=== PATIENT | male | born 1955 | race Caucasian/White ===

== ENCOUNTER 2021-01-08 20:02 | Emergency (ER) | payer MEDICARE, OTHER, SELFPAY ==
--- NOTE | ~2021-01-08 | US_ITS ---
EXAMINATION: US ABDOMEN LIMITED CLINICAL INFORMATION: Elevated LFTs. COMPARISON: None TECHNIQUE: Real-time imaging of the right upper quadrant abdominal viscera. FINDINGS: PANCREAS: The visualized proximal portion of the pancreas is unremarkable. The distal portion is obscured secondary to overlying bowel gas. LIVER: The liver is normal in size. The liver contour is normal. Parenchymal echogenicity is normal. There is a left lobe cyst measuring up to 1.5 cm and a right lobe cyst measuring 1.2 cm. There is no intrahepatic biliary duct dilatation seen. GALLBLADDER: The gallbladder is physiologically distended without evidence of stones, sludge, polyps, wall thickening or pericholecystic fluid. COMMON BILE DUCT: Normal in caliber measuring 0.4 cm in diameter. RIGHT KIDNEY: No hydronephrosis. No renal calculi identified. There is a lower pole cyst measuring up to 1.2 cm as well as a subcentimeter mid pole cyst. The kidney measures 12.0 cm in maximum dimension. FREE FLUID: None. US/US abdomen limited IMPRESSION: No acute findings identified.
--- NOTE | ~2021-01-08 | CT_ITS ---
EXAMINATION: CT CERVICAL SPINE WITHOUT CONTRAST CLINICAL INFORMATION: Head injury COMPARISON: None TECHNIQUE: Axial images through the cervical spine without contrast. Sagittal and coronal reconstructions on the technologist workstation were performed. This CT examination was performed using dose optimization techniques as appropriate, variously including the following: *Automated exposure control *Adjustment of mA and/or kV according to patient size (this includes techniques or standardized protocols for targeted exams where dose is matched to indication/reason for exam; i.e. extremities or head) *Use of iterative reconstruction technique DLP: 434 mGy-cm FINDINGS: The head is tilted to the right. Bone alignment is otherwise normal. No fracture or dislocation is seen. There is evidence of degenerative spondylosis and degenerative disc disease at 5 C5-C6 and C6-C7. There are degenerative changes at the C1 dens articulation. Prevertebral soft tissues are normal. The lung apices are clear. CT/CT cervical spine wo con IMPRESSION: No fracture or dislocation seen. Head tilt to the right and degenerative changes.
--- NOTE | ~2021-01-08 | XR_ITS ---
EXAMINATION: XR CHEST CLINICAL INFORMATION: Fall COMPARISON: None TECHNIQUE: Frontal view of the chest was obtained. FINDINGS: The cardiac and mediastinal contours are normal. The lung volumes are low. The lungs are clear. There is no pleural effusion or pneumothorax. Bony structures are unremarkable. XR/XR chest 1V IMPRESSION: Low lung volumes otherwise unremarkable exam.
--- NOTE | ~2021-01-08 | CT_ITS ---
EXAMINATION: CT HEAD WITHOUT CONTRAST CLINICAL INFORMATION: Head injury COMPARISON: None TECHNIQUE: Contiguous axial imaging was performed from the skull base to vertex without intravenous administration of contrast. This CT examination was performed using dose optimization techniques as appropriate, variously including the following: *Automated exposure control *Adjustment of mA and/or kV according to patient size (this includes techniques or standardized protocols for targeted exams where dose is matched to indication/reason for exam; i.e. extremities or head) *Use of iterative reconstruction technique DLP: 755 mGy-cm FINDINGS: There is no evidence of an extra-axial collection. There is no evidence of intra-axial or extra-axial hemorrhage. The ventricles and extra-axial CSF spaces are prominent suggestive of generalized atrophy. There is nonspecific periventricular white matter disease. No mass, mass effect or infarct is seen. Review at bone windows is normal. No skull fracture is seen. Visualized paranasal sinuses, mastoid air cells and middle ears are. CT/CT head/brain wo con IMPRESSION: No acute findings. Generalized atrophy and nonspecific periventricular white matter disease.
[2021-01-08 20:09] VITALS: BP 101/66; BP 110/78; PULSE 74; PULSE 80; RESP 15; TEMP 36.4; O2SAT 95; BMI 28.1
--- NOTE | 2021-01-08 20:55 | PC.NURSE ---
SATURATED BRIEF REMOVED FROM PATIENT. GOOD SKIN INTEGRITY THROUGHOUT. PT IS UNABLE TO FOLLOW COMMANDS, UNABLE TO STATE NEEDS, IS DIFFICULT TO MANUVER IN BED. NO INJURIED NOTED ON SCALP/HEAD. SMILING AT TIMES.
--- NOTE | 2021-01-08 21:03 | ECG_ITS ---
Test Reason : FALLS Blood Pressure : / mmHG Vent. Rate : 066 BPM Atrial Rate : 066 BPM P-R Int : 154 ms QRS Dur : 082 ms QT Int : 442 ms P-R-T Axes : 031 -11 007 degrees QTc Int : 463 ms Normal sinus rhythm Normal ECG No previous ECGs available Referred By: Kayce Infante Electronically Signed By:Riaz Charles
[2021-01-08 21:37] LABS: Basophils Percent Auto 0.2 % (0-2); Eosinophils Absolute Auto 0.3 X10*3/uL (0.0-0.4); Hematocrit 38.4 % (42-52); Hemoglobin 12.7 g/dl (14.0-18.0); Imm Gran Abs Auto 0.05 X10*3/uL (0.00-0.03); Imm Gran Pct Auto 0.4 % (0.0-0.4); Lymphocytes Absolute Auto 1.9 X10*3/uL (1.2-4.9); Lymphocytes Percent Auto 15.2 % (20-40); MANUAL DIFF FLAG NO; Mean Corpuscular HGB Conc 33.1 g/dl (31.0-36.0); Mean Corpuscular Hemoglobin 30.8 pg (27.0-33.0); Mean Corpuscular Volume 93.2 fL (80-98); Mean Platelet Volume 9.8 fL (9.4-12.4); Monocytes Absolute Auto 1.1 X10*3/uL (0.1-1.2); Monocytes Percent Auto 8.8 % (2-11); Neutrophils Percent Auto 73.4 % (45-73); Platelet Count 260 X10*3/uL (160-400); Red Blood Count 4.12 X10*6/uL (4.60-5.80); Red Cell Distribution Width 13.6 % (11.0-16.0); White Blood Count 12.2 X10*3/uL (4.8-10.8)
[2021-01-08 21:43] LABS: INTERNATIONAL NORM RATIO 1.2 (0.9-1.1); Prothrombin Time 14.4 SEC (10.8-13.0)
[2021-01-08 22:04] LABS: Alanine Aminotransferase 85 U/L (0-40); Albumin Level 3.8 g/dL (3.5-5.0); Alkaline Phosphatase 133 U/L (39-117); Aspartate Amino Transferase 99 U/L (5-37); Bilirubin Direct 0.2 mg/dL (0.0-0.5); Bilirubin Total 0.6 mg/dL (0.0-1.0); Magnesium 2.2 mg/dL (1.6-2.6); Total Protein 6.1 g/dL (6.5-8.0)
[2021-01-08 22:05] LABS: Alanine Aminotransferase 86 U/L (0-40); Albumin Level 3.8 g/dL (3.5-5.0); Alkaline Phosphatase 133 U/L (39-117); Anion Gap 14 (12-20); Aspartate Amino Transferase 100 U/L (5-37); Bilirubin Total 0.6 mg/dL (0.0-1.0); Blood Urea Nitrogen 23 mg/dL (9-16); Calcium 8.7 mg/dL (8.4-10.2); Carbon Dioxide 26 mmol/L (22-29); Chloride 104 mmol/L (96-108); Creatinine Clr Calc Pharmacy 74.9; Estimated Glomerular Filt Rate > 60; Glucose Random 106 mg/dL (60-115); Potassium 3.9 mmol/L (3.3-5.1); Sodium 140 mmol/L (135-145); Total Protein 6.2 g/dL (6.5-8.0)
[2021-01-08 22:07] LABS: B Type Natriuretic Peptide 57 pg/mL (<100); Troponin-I High Sensitivity 3.9 ng/L (<3.5-35.0)
[2021-01-08 22:30] LABS: Influenza A PCR NEGATIVE (Negative); Influenza B PCR NEGATIVE (Negative); Resp Syncy Virus RNA Qual PCR NEGATIVE (Negative); SARS COV2 PCR INHOUSE NEGATIVE (Negative)
[2021-01-08 22:32] LABS: Glucose Urine UA NEG (NEG); Leukocyte Esterase Urine NEG (NEG); Nitrite Urine NEG (NEG); PH 5.5 (5.0-8.0); Specific Gravity - Urine >= 1.030 (1.005-1.025); Urine Blood TRACE (NEG); Urine Ketones NEG (NEG); Urine Protein NEG (NEG-TRACE)
[2021-01-08 22:34] LABS: Appearance Urine CLEAR; Color Urine YELLOW
[2021-01-08 22:45] LABS: Mucus Urine 2+ /LPF; RBC Urine 0 /HPF (0); Squamous Epithelial Cell Urine 2+ /LPF; UACC CULT YES; WBC Clumps Urine NOTED; WBC Urine 50-75 /HPF (0-4)
[2021-01-09] VITALS: BP 98/57; PULSE 52; RESP 15; O2SAT 96
--- NOTE | 2021-01-09 01:22 | ED_ITS ---
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 Although from EMS apparently the patient was eating ice cream got very excited pushes head backward hit his head on the door although no loss of consciousness although they decided to sent here for further evaluation treatment. Although this is vague because the is telling us a different story saying that the patient possibly had a seizure. Although I attempted to call [facility] and was transferred 3 times and then was on hold for over 25 minutes and I was never able to contact anyone there about what actually happened. The is also reporting that she also attempted to call them and she can never get a response and till they call her. She reports she is concerned due to he was there for short-term rehab due to falls and since he has been there on Monday he has fallen approximately 3-4 times and she is unsure if she wants him to go back there. She reports he is at baseline for mentation. Related Data Allergies Allergy/AdvReac Type Severity Reaction Status Date / Time Penicillins Allergy Unknown rash Verified 01/09/21 01:36 Review of Systems Review of Systems: Yes Unobtainable due to mental condition (Alzhe robina's/dementia at baseline) [facility] Social History Social History Alcohol intake: never Smoked in Last 30 Days: No Use of substances other than those prescribed or required for medical reasons: No Advance Directives: Yes Advance Directives on File: Yes Advance Directives Date on File: 01/08/21 Physical Exam Vital Signs: Vital Signs: Last Vital Signs Temp 97.6 F 01/08/21 20:09 Pulse 52 01/09/21 00:00 Resp 15 01/09/21 00:00 BP 98/57 L 01/09/21 00:00 Pulse Ox 96 01/09/21 00:00 Body Mass Index 28.1 vital signs have been reviewed as normal and appeared to be correct. Blood pressure normal. Heart rate normal. Respiration rate normal. Temperature normal. Oxygen saturation normal. Appearance: Alert and confused at baseline. No acute distress. Head: Normal external exam. Normocephalic. No signs of trauma. Eyes: PERRLA. EOMI. Conjunctiva and sclera normal. Eyelids normal. ENT: Pharynx normal. Uvula midline. Moist mucous membranes. No trismus noted. No drooling noted. No muffled voice noted. Neck: Normal inspection. Neck supple. FROM. No adenopathy. No meningeal signs. CVS: Normal heart rate and rhythm. Heart sound normal. No murmurs noted. Pulses normal throughout. Respiratory: No respiratory distress. Painless inspiration. Breath sounds n ormal. No wheezes/rales/rhonchi noted. Chest nontender. No accessory muscle usage noted or decreased air movement noted. Abdomen: Soft and nontender. Nondistended. No guarding. No rigidity. Bowel s ounds normal in all 4 quadrants. No distention noted. No organomegaly noted. No visible injury noted. No rebound tenderness. Negative Rovsing sign. Negative obturator's sign. Negative psoas sign. Negative Narayan sign. Back: No CVA tenderness. Full range of motion noted. Skin: Skin warm and dry. Normal skin color. Normal skin turgor. No rashes/lesions/lacerations noted. Extremities: No lower extremity edema. No calf tenderness noted. Extremities exhibit normal range of motion. Extremities nontender. Neuro: Confused at baseline. No motor deficit. No sensory deficit. Reflexes normal. Course Course Course Narrative: 1:45am - labs obtained and [place] [address]. Mild anemia. BUN 23. AST/ALT/alkaline phosphate 100/86/133. Total protein 6.2. Otherwise all other labs are within normal limits. Patient with 50-75 white blood cells and UA negative nitrates patient with a possible UTI will await culture. Therefore blood cultures will be obtained as well. No lactic acid indicated at this time as no signs of sepsis. COVID/RSV/flu negative. EKG is normal sinus rhythm with ventricular rate of 66 with a normal SD interval normal QRS duration normal QT/QTC interval. No acute ischemic changes are noted. CT scan Of brain/cervical spine/chest x-ray revealed chronic changes no acute processes noted. - due to the patient's elevated LFTs I added of abdominal ultrasound and hepatitis panel. Abdominal ultrasound is within normal limits. Pending hepatitis a/B/C. - therefore patient medically cleared at this time and he is being placed in physician observation because he needs to be evaluated by physical therapy and possibly needs case management for new placement wants the patient to stay here overnight she does not want him to return tonight to [facility]. Therefore will continue to monitor. No focal neuro deficits are noted. Lungs clear to auscultation. CV RRR. Abdomen is soft and nontender. Will continue to monitor. 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 at bedside she is concerned due to she has been unable to reach him about will actually has been happening with her son since he arrived on Monday. I also attempted to call and I was unable to speak to someone. - per at bedside patient is at baseline for mentation and neuro. - Plan: Labs, EKG, CT scan of brain/cervical spine, chest x-ray, UA, COVID/RSV/flu swab then re-evaluate. Medical Records Medical records reviewed: Yes I reviewed the patient's medical records. Lab Data Lab results reviewed: Yes I reviewed the patient's lab results. Result diagrams: 01/08/21 21:29 01/08/21 21:29 Labs: Lab Results 01/08/21 01/08/21 01/08/21 Range/Units 21:29 21:29 21:29 WBC 12.2 H (4.8-10.8) X10*3/uL RBC 4.12 L (4.60-5.80) X10*6/uL Hgb 12.7 L (14.0-18.0) g/dl Hct 38.4 L (42-52) % MCV 93.2 (80-98) fL MCH 30.8 (27.0-33.0) pg MCHC 33.1 (31.0-36.0) g/dl RDW 13.6 (11.0-16.0) % Plt Count 260 (160-400) X10*3/uL MPV 9.8 (9.4-12.4) fL Immature Gran % (Auto) 0.4 (0.0-0.4) % Neut % (Auto) 73.4 H (45-73) % Lymph % (Auto) 15.2 L (20-40) % [place] % (Auto) 8.8 (2-11) % Eos % (Auto) 2.0 (0-4) % Baso % (Auto) 0.2 (0-2) % Lymph # (Auto) 1.9 (1.2-4.9) X10*3/uL [place] # (Auto) 1.1 (0.1-1.2) X10*3/uL Eos # (Auto) 0.3 (0.0-0.4) X10*3/uL Baso # (Auto) 0.0 (0.0-0.2) X10*3/uL Abs Immat Gran (auto) 0.05 H (0.00-0.03) X10*3/uL Absolute Neuts (auto) 9.0 H (2.0-8.3) X10*3/uL Absolute Nucleated RBC 0.000 (0.0-0.012) X10*3/uL Nucleated RBC % (auto) 0.0 (0.0-0.2) /100WBC PT 14.4 H (10.8-13.0) SEC INR 1.2 H (0.9-1.1) Sodium (135-145) mmol/L Potassium (3.3-5.1) mmol/L Chloride (96-108) mmol/L Carbon Dioxide (22-29) mmol/L Anion Gap (12-20) BUN (9-16) mg/dL Creatinine (0.5-1.4) mg/dL Estim Creat Clear Calc Estimated GFR Random Glucose (60-115) mg/dL Calcium (8.4-10.2) mg/dL Magnesium 2.2 (1.6-2.6) mg/dL Total Bilirubin 0.6 (0.0-1.0) mg/dL Direct Bilirubin 0.2 (0.0-0.5) mg/dL AST 99 H (5-37) U/L ALT 85 H (0-40) U/L Alkaline Phosphatase 133 H (39-117) U/L Troponin I High Sens (<3.5-35.0) ng/L B-Natriuretic Peptide (<100) pg/mL Total Protein 6.1 L (6.5-8.0) g/dL Albumin 3.8 (3.5-5.0) g/dL Urine Color Urine Appearance Urine pH (5.0-8.0) Ur Specific [place] (1.005-1.025) Urine Protein (NEG-TRACE) MG/DL Urine Glucose (UA) (NEG) MG/DL Urine Ketones (NEG) MG/DL Urine Blood (NEG) Urine Nitrite (NEG) Ur Leukocyte Esterase (NEG) Urine RBC (0) /HPF Urine WBC (0-4) /HPF Urine WBC Clumps Ur Squamous Epith Cells /LPF Urine Bacteria /LPF Urine Mucus /LPF Coronavirus (PCR) (Negative) Influenza Type A (PCR) (Negative) Influenza Type B (PCR) (Negative) RSV RNA Qual (PCR) (Negative) 01/08/21 01/08/21 01/08/21 Range/Units 21:29 21:29 21:29 WBC (4.8-10.8) X10*3/uL RBC (4.60-5.80) X10*6/uL Hgb (14.0-18.0) g/dl Hct (42-52) % MCV (80-98) fL MCH (27.0-33.0) pg MCHC (31.0-36.0) g/dl RDW (11.0-16.0) % Plt Count (160-400) X10*3/uL MPV (9.4-12.4) fL Immature Gran % (Auto) (0.0-0.4) % Neut % (Auto) (45-73) % Lymph % (Auto) (20-40) % [place] % (Auto) (2-11) % Eos % (Auto) (0-4) % Baso % (Auto) (0-2) % Lymph # (Auto) (1.2-4.9) X10*3/uL [place] # (Auto) (0.1-1.2) X10*3/uL Eos # (Auto) (0.0-0.4) X10*3/uL Baso # (Auto) (0.0-0.2) X10*3/uL Abs Immat Gran (auto) (0.00-0.03) X10*3/uL Absolute Neuts (auto) (2.0-8.3) X10*3/uL Absolute Nucleated RBC (0.0-0.012) X10*3/uL Nucleated RBC % (auto) (0.0-0.2) /100WBC PT (10.8-13.0) SEC INR (0.9-1.1) Sodium 140 (135-145) mmol/L Potassium 3.9 (3.3-5.1) mmol/L Chloride 104 (96-108) mmol/L Carbon Dioxide 26 (22-29) mmol/L Anion Gap 14 (12-20) BUN 23 H (9-16) mg/dL Creatinine 1.01 (0.5-1.4) mg/dL Estim Creat Clear Calc 74.9 Estimated GFR > 60 Random Glucose 106 (60-115) mg/dL Calcium 8.7 (8.4-10.2) mg/dL Magnesium (1.6-2.6) mg/dL Total Bilirubin 0.6 (0.0-1.0) mg/dL Direct Bilirubin (0.0-0.5) mg/dL AST 100 H (5-37) U/L ALT 86 H (0-40) U/L Alkaline Phosphatase 133 H (39-117) U/L Troponin I High Sens 3.9 (<3.5-35.0) ng/L B-Natriuretic Peptide (<100) pg/mL Total Protein 6.2 L (6.5-8.0) g/dL Albumin 3.8 (3.5-5.0) g/dL Urine Color Urine Appearance Urine pH (5.0-8.0) Ur Specific [place] (1.005-1.025) Urine Protein (NEG-TRACE) MG/DL Urine Glucose (UA) (NEG) MG/DL Urine Ketones (NEG) MG/DL Urine Blood (NEG) Urine Nitrite (NEG) Ur Leukocyte Esterase (NEG) Urine RBC (0) /HPF Urine WBC (0-4) /HPF Urine WBC Clumps Ur Squamous Epith Cells /LPF Urine Bacteria /LPF Urine Mucus /LPF Coronavirus (PCR) NEGATIVE (Negative) Influenza Type A (PCR) NEGATIVE (Negative) Influenza Type B (PCR) NEGATIVE (Negative) RSV RNA Qual (PCR) NEGATIVE (Negative) 01/08/21 01/08/21 Range/Units 21:29 22:26 WBC (4.8-10.8) X10*3/uL RBC (4.60-5.80) X10*6/uL Hgb (14.0-18.0) g/dl Hct (42-52) % MCV (80-98) fL MCH (27.0-33.0) pg MCHC (31.0-36.0) g/dl RDW (11.0-16.0) % Plt Count (160-400) X10*3/uL MPV (9.4-12.4) fL Immature Gran % (Auto) (0.0-0.4) % Neut % (Auto) (45-73) % Lymph % (Auto) (20-40) % [place] % (Auto) (2-11) % Eos % (Auto) (0-4) % Baso % (Auto) (0-2) % Lymph # (Auto) (1.2-4.9) X10*3/uL [place] # (Auto) (0.1-1.2) X10*3/uL Eos # (Auto) (0.0-0.4) X10*3/uL Baso # (Auto) (0.0-0.2) X10*3/uL Abs Immat Gran (auto) (0.00-0.03) X10*3/uL Absolute Neuts (auto) (2.0-8.3) X10*3/uL Absolute Nucleated RBC (0.0-0.012) X10*3/uL Nucleated RBC % (auto) (0.0-0.2) /100WBC PT (10.8-13.0) SEC INR (0.9-1.1) Sodium (135-145) mmol/L Potassium (3.3-5.1) mmol/L Chloride (96-108) mmol/L Carbon Dioxide (22-29) mmol/L Anion Gap (12-20) BUN (9-16) mg/dL Creatinine (0.5-1.4) mg/dL Estim Creat Clear Calc Estimated GFR Random Glucose (60-115) mg/dL Calcium (8.4-10.2) mg/dL Magnesium (1.6-2.6) mg/dL Total Bilirubin (0.0-1.0) mg/dL Direct Bilirubin (0.0-0.5) mg/dL AST (5-37) U/L ALT (0-40) U/L Alkaline Phosphatase (39-117) U/L Troponin I High Sens (<3.5-35.0) ng/L B-Natriuretic Peptide 57 (<100) pg/mL Total Protein (6.5-8.0) g/dL Albumin (3.5-5.0) g/dL Urine Color YELLOW Urine Appearance CLEAR Urine pH 5.5 (5.0-8.0) Ur Specific [place] >= 1.030 H (1.005-1.025) Urine Protein NEG (NEG-TRACE) MG/DL Urine Glucose (UA) NEG (NEG) MG/DL Urine Ketones NEG (NEG) MG/DL Urine Blood TRACE (NEG) Urine Nitrite NEG (NEG) Ur Leukocyte Esterase NEG (NEG) Urine RBC 0 (0) /HPF Urine WBC 50-75 H (0-4) /HPF Urine WBC Clumps NOTED Ur Squamous Epith Cells 2+ /LPF Urine Bacteria NONE /LPF Urine Mucus 2+ /LPF Coronavirus (PCR) (Negative) Influenza Type A (PCR) (Negative) Influenza Type B (PCR) (Negative) RSV RNA Qual (PCR) (Negative) Imaging Data CT scan of brain/cervical spine: Attestation: I personally reviewed and interpreted this imaging study as follows: Radiologist's impression: FINDINGS: There is no evidence of an extra-axial collection. There is no evidence of intra-axial or extra-axial hemorrhage. The ventricles and extra-axial CSF spaces are prominent suggestive of generalized atrophy. There is nonspecific periventricular white matter disease. No mass, mass effect or infarct is seen. Review at bone windows is normal. No skull fracture is seen. Visualized paranasal sinuses, mastoid air cells and middle ears are. CT/CT head/brain wo con IMPRESSION: No acute findings. Generalized atrophy and nonspecific periventricular white matter disease. FINDINGS: The head is tilted to the right. Bone alignment is otherwise normal. No fracture or dislocation is seen. There is evidence of degenerative spondylosis and degenerative disc disease at 5 C5-C6 and C6-C7. There are degenerative changes at the C1 dens articulation. Prevertebral soft tissues are normal. The lung apices are clear. CT/CT cervical spine wo con IMPRESSION: No fracture or dislocation seen. Head tilt to the right and degenerative changes. Chest x-ray: Attestation: I personally reviewed and interpreted this imaging study as follows: Radiologist's impression: FINDINGS: The cardiac and mediastinal contours are normal. The lung volumes are low. The lungs are clear. There is no pleural effusion or pneumothorax. Bony structures are unremarkable. XR/XR chest 1V IMPRESSION: Low lung volumes otherwise unremarkable exam. ECG Data Attestation: I personally reviewed and interpreted this ECG as follows: Interpretation: Normal sinus rhythm with ventricular rate of 66 with a normal SD interval normal QRS duration normal QT/QTC interval no acute ischemic changes are noted. Discharge Plan Discharge Clinical Impression: Multiple falls
[2021-01-09 06:00] VITALS: BP 111/74; PULSE 58; RESP 15; O2SAT 95
[2021-01-09 07:25] VITALS: BP 111/74; PULSE 58; O2SAT 95
--- NOTE | 2021-01-09 10:51 | MHC.CM.PN ---
Attempted to meet with pt to discuss d/c plans: pt in bed: not aware of time, location, situation but did answer to name. Review of EMR notes pt came from [facility] after a fall/? seizure. All work up is negative. Attempted to contact nursing unit at [facility] x 3: phone rings without pickup then disconnects. Call placed to pt's spouse, Roland who provided all of the following information: Pt had been at home approximately 3 weeks ago being cared for by her and their dtr. Pt was becomming difficult to manage: behaviors, including physical, became worse and he was brought to [facility] for eval. Placement was obtained after 7 days to [facility]; pt exhibiting behaviors there, sent back to [facility] and ultimately d/c'd to [facility] on 01/04. Roland states pt is able to ambulate unassisted but requires extensive cueing and assistance for ADL's. She is his HCP - copy requested: CM will contact [facility] for copy as well. Pt has a secondary insurance policy through [employer] (from [facility]): unsure if this has a STR/LTC benefit. Pt seen by PT here - pt unable to cognitively participate in eval and LTC was recommended. Roland does not want pt to return to [facility] at this time d/t his 3+ falls since he arrived on 01/04, lack of staff communication and overall feeling of suboptimal care. Explained the difficulties in finding appropriate placement for pt d/t dx, behavior hx and need for a secure unit. Will re-refer to [facility] and other [facility] STR facilities per Roland's request. Will attempt to contact [facility] for medication information.
--- NOTE | 2021-01-09 12:01 | MHC.CM.ED ---
Spoke with Angelica from [facility] who offered apologizes on not being more communicative. She states they would love for pt to return and offered continue apologies for the issues experienced. Spoke with Roland, pt's spouse who is willing to try [facility] again. Pt is medically cleared and will return to [facility] today at 1pm via [facility].
[2021-01-09 13:43] VITALS: BP 123/79; PULSE 55; RESP 18; O2SAT 97
--- NOTE | 2021-01-09 13:51 | PC.NURSE ---
report given to Renée
[2021-01-11 04:17] LABS: HBS Num1 0.57 mIU/mL (0-7.99); HBc Num1 0.05 S/CO (0.00-0.79); Hepatitis B Core Antibody Nonreactive (Nonreactive); Hepatitis B Surface Antigen Negative (Negative); ~HepC Num1 0.49 S/CO (0.00-0.79); ~Hepatitis B Surface Antibody NONREACTIVE (Nonreactive); ~Hepatitis C Antibody Nonreactive (Nonreactive)
[2021-01-12 04:33] LABS: Hepatitis A Antibody IgM 0.12 Index (0-0.79); ~Hepatitis A Antibody IgM Nonreactive (Nonreactive)
== END 2021-01-09 13:53 | disposition skilled nursing facility (03) ==
PROVIDERS: Physician Assistant Medical; Emergency Provider Emergency Medicine; PCP Emergency Medicine
DX: S09.90XA Unspecified injury of head, initial encounter (principal); G30.9 Alzheimer's disease, unspecified; F02.81 Dementia in other diseases classified elsewhere, unspecified severity, with behavioral disturbance; M54.2 Cervicalgia; I25.10 Atherosclerotic heart disease of native coronary artery without angina pectoris; W01.0XXA Fall on same level from slipping, tripping and stumbling without subsequent striking against object, initial encounter; Y93.9 Activity, unspecified; Y92.129 Unspecified place in nursing home as the place of occurrence of the external cause; Y99.9 Unspecified external cause status; Z20.822 Contact with and (suspected) exposure to COVID-19; Z91.81 History of falling; Z79.899 Other long term (current) drug therapy
CPT/HCPCS: 0241U; 36415; 70450; 71045; 72125; 76705; 80053; 80076; 81001; 82248; 83735; 83880; 84484; 85025; 85610; 86704; 86706; 86709; 86803; 87040; 87086; 87340; 93005; 97161; 99285

== ENCOUNTER 2021-09-13 22:39 | Emergency (ER) | payer MEDICARE, OTHER, SELFPAY ==
--- NOTE | ~2021-09-13 | XR_ITS ---
EXAMINATION: XR CHEST CLINICAL INFORMATION: Shortness of breath COMPARISON: 01/08/2021 TECHNIQUE: Frontal view of the chest was obtained. FINDINGS: Compared to the prior study, there is better expansion of the lungs with clearing of previously present lower lobe atelectasis. At this point in time, no significant abnormality is noted involving the heart, lungs, mediastinum, bony thorax or soft tissues. XR/XR chest 1V IMPRESSION: No acute intrathoracic disease.
--- NOTE | ~2021-09-13 | CT_ITS ---
EXAMINATION: CT ABDOMEN AND PELVIS WITH CONTRAST CLINICAL INFORMATION: Ultrasound 01/08/2021 COMPARISON: None TECHNIQUE: Multidetector volumetric images were obtained from the superior aspect of the liver through the pubic symphysis following administration 85 mL of Omnipaque 350 intravenous contrast. Sagittal and coronal reformatted images were obtained on the technologist's workstation. Oral contrast: No This CT examination was performed using dose optimization techniques as appropriate, variously including the following: *Automated exposure control *Adjustment of mA and/or kV according to patient size (this includes techniques or standardized protocols for targeted exams where dose is matched to indication/reason for exam; i.e. extremities or head) *Use of iterative reconstruction technique DLP: 2075 mGy-cm FINDINGS: Motion limited evaluation. Repeat images are performed due to this. LUNG BASES: Groundglass opacities noted at the lung bases consistent with clinical history of Covid. The visualized cardiac structures are unremarkable. LIVER, GALLBLADDER, AND BILIARY TREE: The liver is normal in size, shape, and attenuation. No biliary ductal dilatation. There are hypoattenuating lesions noted in the liver which likely correspond to cysts seen on previous ultrasound.. The gallbladder is unremarkable with no evidence of radiopaque gallstones, gallbladder wall thickening, or obvious pericholecystic inflammatory changes. PANCREAS: Unremarkable. SPLEEN: Unremarkable. ADRENAL GLANDS: Unremarkable. KIDNEYS AND URETERS: The kidneys are normal in size, shape, and attenuation. No hydronephrosis, hydroureter, or calculi seen. No perinephric stranding. BLADDER: Unremarkable. GASTROINTESTINAL TRACT: The stomach is unremarkable. Normal caliber small bowel. No obstruction. No colonic wall thickening or inflammatory change. Unremarkable appendix. Mild colonic stool burden. No free air or free fluid. ABDOMINAL WALL: No significant hernia is appreciated. LYMPH NODES: Normal. VASCULAR: Unremarkable. PELVIC VISCERA: The prostate and seminal vesicles are unremarkable. OSSEOUS STRUCTURES: No acute or suspicious osseous abnormality. Degenerative changes of the lumbar spine. Mild degenerative changes in the hips. CT/CT abdomen pelvis w con IMPRESSION: Motion limited study. Groundglass opacities at the lung bases correspond with clinical history of Covid. No suspicious findings in the abdomen or pelvis. Mild colonic stool burden. Fleischner guidelines were followed.
[2021-09-13 23:01] VITALS: BP 116/77; BP 117/83; PULSE 86; PULSE 93; RESP 16; TEMP 37.1; O2SAT 95; O2SAT 96; BMI 23.8
[2021-09-13 23:12] VITALS: TEMP 37.6
--- NOTE | 2021-09-13 23:41 | ED_ITS ---
HPI - Nausea/Vomiting/Diarrhea General Chief complaint: Nausea/Vomiting/Diarrhea Stated complaint: N/V ?GI bleed (from SNF/COVID +) Time Seen by Provider: 09/13/21 23:35 History of Present Illness HPI Narrative: Patient is a 66-year-old male with a history of advanced dementia. He has a do not resuscitate order documented from previous. Tested positive for COVID approximately 3 days prior. Patient had nausea vomiting earlier this evening. Multiple times. Sent in for further evaluation for possible blood in the vomitus. Patient not on blood thinners. Unable to give detailed history. Related Data Allergies Allergy/AdvReac Type Severity Reaction Status Date / Time Penicillins Allergy Unknown rash Verified 01/09/21 01:36 Review of Systems Review of Systems: Yes Unobtainable due to mental status PMFSH Past Medical History Attestation statement: The following information was validated with the patient. Social History Social History Alcohol intake: never Advance Directives: Yes Advance Directives on File: Yes Advance Directives Date on File: 01/08/21 Physical Exam Vital Signs: Vital Signs: Last Vital Signs Temp 98.7 F 09/14/21 00:45 Pulse 81 09/14/21 00:45 Resp 10 L 09/14/21 00:45 BP 148/74 H 09/14/21 00:45 Pulse Ox 98 09/14/21 00:45 BMI result Body Mass Index 23.8 Appearance: Alert. Oriented times 0 No acute distress. Eyes: Pupils equal, round and reactive to light. ENT: Pharynx normal. Neck: Normal inspection. Neck supple. No lymph nodes noted. No crepitus CVS: Normal heart rate and rhythm. Pulses normal. Normal S1 and S2 Respiratory: No respiratory distress. Breath sounds normal. No Wheezing. No rales Abdomen: Soft and nontender. No rigidity. No distention. good BS x4 Skin: Skin warm and dry. Normal skin color. Normal skin turgor. Rectal exam done with nursing present positive brown hard stool. Extremities: No lower extremity edema. Neurovascular intact to all extremities. No Lacerations. No Rash Neuro: Awake. No motor deficit. No sensory deficit. Moving all extermities. MDM - Nausea/Vomiting/Diarrhea MDM Narrative Medical decision making narrative: Patient presented with having possible coughing versus vomiting episode. On further clarification from alf. Patient had coughing episodes. The chest x-ray was consistent with having COVID. Patient's COVID test is positive. However his O2 sat is 98% on room air. Patient's electrolytes normal. A CT scan of the abdomen was done. There is no gross obstruction no abscess no perforation. Patient's hemoglobin is baseline. A rectal exam showed patient had heme-negative stool. Patient not on blood thinners. Is well appearing. He will be discharged back. In stable condition. Medical Records Attestation: I reviewed the patient's medical records. Lab Data Attestation: I reviewed the patient's lab results. Result diagrams: 09/14/21 00:16 09/14/21 00:16 Labs: Lab Results 09/14/21 09/14/21 09/14/21 Range/Units 00:16 00:16 00:16 WBC 9.3 (4.8-10.8) X10*3/uL RBC 4.01 L (4.60-5.80) X10*6/uL Hgb 12.3 L (14.0-18.0) g/dl Hct 37.4 L (42.0-52.0) % MCV 93.3 (80.0-98.0) fL MCH 30.7 (27.0-33.0) pg MCHC 32.9 (31.0-36.0) g/dl RDW 14.7 (11.0-16.0) % Plt Count 196 (160-400) X10*3/uL MPV 11.5 (9.4-12.4) fL Immature Gran % (Auto) 0.5 H (0.0-0.4) % Neut % (Auto) 68.4 (45-73) % Lymph % (Auto) 15.7 L (20-40) % [place] % (Auto) 14.9 H (2-11) % Eos % (Auto) 0.2 (0-4) % Baso % (Auto) 0.3 (0-2) % Lymph # (Auto) 1.5 (1.2-4.9) X10*3/uL [place] # (Auto) 1.4 H (0.1-1.2) X10*3/uL Eos # (Auto) 0.0 (0.0-0.4) X10*3/uL Baso # (Auto) 0.0 (0.0-0.2) X10*3/uL Abs Immat Gran (auto) 0.05 H (0.00-0.03) X10*3/uL Absolute Neuts (auto) 6.3 (2.0-8.3) x10*3/uL Absolute Nucleated RBC 0.000 (0.0-0.012) X10*3/uL Nucleated RBC % (auto) 0.0 (0.0-0.2) /100WBC Sodium 140 (135-145) mmol/L Potassium 3.8 (3.3-5.1) mmol/L Chloride 105 (96-108) mmol/L Carbon Dioxide 25 (22-29) mmol/L Anion Gap 14 (12-20) BUN 15 (9-16) mg/dL Creatinine 1.00 (0.5-1.4) mg/dL Estim Creat Clear Calc 70.7 Estimated GFR > 60 Random Glucose 107 (60-115) mg/dL Calcium 8.4 (8.4-10.2) mg/dL Total Bilirubin 0.5 (0.0-1.0) mg/dL Direct Bilirubin 0.2 (0.0-0.5) mg/dL AST 48 H D (5-37) U/L ALT 37 (0-40) U/L Alkaline Phosphatase 130 H (39-117) U/L Total Protein 6.0 L (6.5-8.0) g/dL Albumin 3.4 L (3.5-5.0) g/dL Lipase 58 (8-78) U/L Stool Occult Blood NEGATIVE (NEGATIVE) SARS-CoV-2 (PCR) SARS-CoV-2 RNA (RT-PCR) (Negative) 09/14/21 Range/Units 00:16 WBC (4.8-10.8) X10*3/uL RBC (4.60-5.80) X10*6/uL Hgb (14.0-18.0) g/dl Hct (42.0-52.0) % MCV (80.0-98.0) fL MCH (27.0-33.0) pg MCHC (31.0-36.0) g/dl RDW (11.0-16.0) % Plt Count (160-400) X10*3/uL MPV (9.4-12.4) fL Immature Gran % (Auto) (0.0-0.4) % Neut % (Auto) (45-73) % Lymph % (Auto) (20-40) % [place] % (Auto) (2-11) % Eos % (Auto) (0-4) % Baso % (Auto) (0-2) % Lymph # (Auto) (1.2-4.9) X10*3/uL [place] # (Auto) (0.1-1.2) X10*3/uL Eos # (Auto) (0.0-0.4) X10*3/uL Baso # (Auto) (0.0-0.2) X10*3/uL Abs Immat Gran (auto) (0.00-0.03) X10*3/uL Absolute Neuts (auto) (2.0-8.3) x10*3/uL Absolute Nucleated RBC (0.0-0.012) X10*3/uL Nucleated RBC % (auto) (0.0-0.2) /100WBC Sodium (135-145) mmol/L Potassium (3.3-5.1) mmol/L Chloride (96-108) mmol/L Carbon Dioxide (22-29) mmol/L Anion Gap (12-20) BUN (9-16) mg/dL Creatinine (0.5-1.4) mg/dL Estim Creat Clear Calc Estimated GFR Random Glucose (60-115) mg/dL Calcium (8.4-10.2) mg/dL Total Bilirubin (0.0-1.0) mg/dL Direct Bilirubin (0.0-0.5) mg/dL AST (5-37) U/L ALT (0-40) U/L Alkaline Phosphatase (39-117) U/L Total Protein (6.5-8.0) g/dL Albumin (3.5-5.0) g/dL Lipase (8-78) U/L Stool Occult Blood (NEGATIVE) SARS-CoV-2 (PCR) Cancelled SARS-CoV-2 RNA (RT-PCR) POSITIVE A (Negative) Discharge Plan Discharge Clinical Impression: COVID-19 Patient Disposition: Home, Self-Care Instructions: COVID-19 (Coronavirus Disease 2019) (ED) Referrals: YVES HONG [Primary Care Provider] - 2 days (Placed a isolative for at least 1 week from the onset of symptoms. Please make sure patient has no sympto ms for at least 2 days prior to being released from isolation)
[2021-09-14 00:22] LABS: MANUAL DIFF FLAG NO
[2021-09-14 00:23] LABS: Basophils Percent Auto 0.3 % (0-2); Eosinophils Percent Auto 0.2 % (0-4); Hematocrit 37.4 % (42.0-52.0); Hemoglobin 12.3 g/dl (14.0-18.0); Imm Gran Abs Auto 0.05 X10*3/uL (0.00-0.03); Imm Gran Pct Auto 0.5 % (0.0-0.4); Lymphocytes Absolute Auto 1.5 X10*3/uL (1.2-4.9); Lymphocytes Percent Auto 15.7 % (20-40); Mean Corpuscular HGB Conc 32.9 g/dl (31.0-36.0); Mean Corpuscular Hemoglobin 30.7 pg (27.0-33.0); Mean Corpuscular Volume 93.3 fL (80.0-98.0); Mean Platelet Volume 11.5 fL (9.4-12.4); Monocytes Absolute Auto 1.4 X10*3/uL (0.1-1.2); Monocytes Percent Auto 14.9 % (2-11); Neutrophils Absolute Auto 6.3 x10*3/uL (2.0-8.3); Neutrophils Percent Auto 68.4 % (45-73); Platelet Count 196 X10*3/uL (160-400); Red Blood Count 4.01 X10*6/uL (4.60-5.80); Red Cell Distribution Width 14.7 % (11.0-16.0); White Blood Count 9.3 X10*3/uL (4.8-10.8)
--- NOTE | 2021-09-14 00:23 | PC.NURSE ---
PT was coughing while this RN was inserting IV. Asked PT to cough and then spit into a cloth so we could visualize blood. PT unable to follow directions well, but no obvious visualization of blood in the mouth.
[2021-09-14] MEDS: 0.9 % Sodium Chloride 1,000 ML 999 ML IV (00:28)
[2021-09-14] MEDS: Ondansetron ODT 4 MG TAB.RAPDIS SUBLINGUAL (00:28)
[2021-09-14 00:30] LABS: OBS Int Ctl Valid YES; OBS1 NEGATIVE (NEGATIVE)
[2021-09-14] MEDS: 0.9 % Sodium Chloride 500 ML 999 ML IV (00:30)
[2021-09-14 00:45] VITALS: BP 148/74; PULSE 81; RESP 10; TEMP 37.1; O2SAT 98
[2021-09-14 00:47] LABS: Alanine Aminotransferase 37 U/L (0-40); Albumin Level 3.4 g/dL (3.5-5.0); Alkaline Phosphatase 130 U/L (39-117); Anion Gap 14 (12-20); Aspartate Amino Transferase 48 U/L (5-37); Bilirubin Direct 0.2 mg/dL (0.0-0.5); Bilirubin Total 0.5 mg/dL (0.0-1.0); Blood Urea Nitrogen 15 mg/dL (9-16); Calcium 8.4 mg/dL (8.4-10.2); Carbon Dioxide 25 mmol/L (22-29); Chloride 105 mmol/L (96-108); Creatinine Clr Calc Pharmacy 70.7; Estimated Glomerular Filt Rate > 60; Glucose Random 107 mg/dL (60-115); Lipase 58 U/L (8-78); Potassium 3.8 mmol/L (3.3-5.1); Sodium 140 mmol/L (135-145)
[2021-09-14 01:02] LABS: SARS COV2 PCR INHOUSE POSITIVE (Negative)
[2021-09-14] MEDS: iohexoL 350 MG/ML 100 ML INFUS..BTL 85 ML IV (02:15)
[2021-09-14 03:00] VITALS: BP 125/82; PULSE 85; RESP 16; TEMP 38; O2SAT 96
[2021-09-14 03:56] VITALS: PULSE 84; RESP 12; TEMP 38.1
[2021-09-14] MEDS: Acetaminophen Supp 650 MG SUPP.RECT PR (04:17)
== END 2021-09-14 04:20 | disposition home or self-care (01) ==
PROVIDERS: Emergency Provider Emergency Medicine Emergency Medical Services; PCP Emergency Medicine
DX: U07.1 COVID-19 (principal); R11.2 Nausea with vomiting, unspecified; I10 Essential (primary) hypertension
CPT/HCPCS: 36415; 71045; 74177; 80048; 80076; 82272; 83690; 85025; 96360; 99284; Q9967; U0003; U0005

== ENCOUNTER 2021-12-20 09:02 | Emergency (ER) | payer MEDICARE, OTHER, SELFPAY ==
--- NOTE | ~2021-12-20 | CT_ITS ---
EXAMINATION: CT ABDOMEN AND PELVIS WITHOUT CONTRAST CLINICAL INFORMATION: Altered mental status and new thrombocytopenia COMPARISON: CT abdomen pelvis 09/14/2021 TECHNIQUE: Multidetector volumetric imaging was performed from the superior aspect of the liver through the pubic symphysis. Sagittal and coronal reformatted images were obtained on the technologist's workstation. This CT examination was performed using dose optimization techniques as appropriate, variously including the following: *Automated exposure control *Adjustment of mA and/or kV according to patient size (this includes techniques or standardized protocols for targeted exams where dose is matched to indication/reason for exam; i.e. extremities or head) *Use of iterative reconstruction technique DLP: 1028 mGy-cm FINDINGS: LUNG BASES: Bibasilar atelectasis is present. No pleural effusions. No infiltrates. LIVER, GALLBLADDER, AND BILIARY TREE: The liver is normal in size, shape, and attenuation. Multiple hepatic cysts are again redemonstrated. No worrisome solid focal hepatic lesion or biliary ductal dilatation is present. The gallbladder is unremarkable with no evidence of radiopaque gallstones, gallbladder wall thickening, or obvious pericholecystic inflammatory changes. PANCREAS: Unremarkable. SPLEEN: The spleen is normal in size. Some splenules are present the largest measuring 2.6 cm. ADRENAL GLANDS: Small left adrenal nodule is seen that measures water density consistent with a benign adenoma. KIDNEYS AND URETERS: The kidneys are normal in size, shape, and attenuation. A Bosniak class wine and Bosniak class II renal cysts are present on the right, unchanged a benign 1.6 cm left parapelvic cyst is present.. No further imaging or follow-up is needed. No solid renal masses are seen. No hydronephrosis, hydroureter, or calculi seen. No perinephric stranding. BLADDER: Empty and difficult to evaluate. GASTROINTESTINAL TRACT: A large amount of stool is present in the rectosigmoid. There is colonic bowel wall thickening, new since prior which involves the ascending colon, transverse colon and proximal descending which may represent colitis. The small bowel is unremarkable. The appendix is unremarkable. ABDOMINAL WALL: No significant hernia is appreciated. LYMPH NODES: Normal. VASCULAR: Unremarkable. PELVIC VISCERA: There is mild BPH. OSSEOUS STRUCTURES: Degenerative changes are present in the spine with scoliosis convex to the right. Benign-appearing stable cyst is noted in the right femoral head along with a sclerotic density in the left iliac bone adjacent to the SI joint.. CT/CT abdomen pelvis wo con IMPRESSION: There is mucosal thickening involving the descending transverse and proximal descending colon, new since the prior study of 09/14/2021. Differential diagnosis would include colitis. Other incidental findings as described above. Fleischner guidelines were followed.
--- NOTE | ~2021-12-20 | CT_ITS ---
CT head/brain wo con CLINICAL INFORMATION: Reason for Exam AMS COMPARISON: Prior CT from January 08, 2021 TECHNIQUE: Department standard protocol. This CT examination was performed using dose optimization techniques as appropriate, variously including the following: *Automated exposure control *Adjustment of mA and/or kV according to patient size (this includes techniques or standardized protocols for targeted exams where dose is matched to indication/reason for exam; i.e. extremities or head) *Use of iterative reconstruction technique DLP: 1948 mGy-cm FINDINGS: CEREBRAL HEMISPHERES: There is no evidence of intra-axial or extra-axial mass, hemorrhage or acute infarct. BRAIN PARENCHYMA: Deep white matter and paraventricular hypoattenuation, nonspecific; most likely changes secondary to chronic ischemia due to microvascular angiopathy. SUBDURAL SPACE: No bleed. BASAL GANGLIA AND PINEAL GLAND: Unremarkable VENTRICLES: Ventricular dilatation is out of proportion to the degree of the atrophy. There is low-attenuation periventricular white matter worrisome for possible hydrocephaly and transependymal extravasation. CEREBELLUM AND BRAINSTEM: No space-occupying mass, hemorrhage or acute infarct. CEREBELLOPONTINE ANGLES: No lesion found. ORBITS: No intraorbital mass. VESSELS: Unremarkable SKULL BASE: Unremarkable INCLUDED SINUSES AT SKULL BASE: Clear SKULL AND SKIN: No fracture or bone lesion found. CT/CT head/brain wo con IMPRESSION: Deep white matter and periventricular hypoattenuation, nonspecific; most likely sequela of chronic microvascular angiopathy ischemia. Ventriculomegaly and possibly transependymal extravasation raising suspicion for possible hydrocephaly/NPH. Clinical correlation recommended. Does the patient has symptoms of NPH (ataxia, incontinence, and confusion)? MRI could be utilized for further investigation.
--- NOTE | 2021-12-20 09:09 | ED_ITS ---
HPI - Psych General Chief Complaint: Psychiatric Symptoms Stated Complaint: CRISIS, AGGRESSIVE BEHAVIOR Time Seen by Provider: 12/20/21 09:09 Source: EMS and other (very limited information, no packet came with patient) Mode of arrival: EMS Limitations: altered mental status (dementia) History of Present Illness MD complaint: other (aggressive, PICA) Onset (ago): unknown Duration: constant History of same: Yes Relieving factors: none Exacerbating factors: none Context: other (advanced dementia) Associated psychiatric symptoms: other (attempting to bite staff) Associated symptoms: denies other symptoms Treatments prior to arrival: none Related Data Allergies Allergy/AdvReac Type Severity Reaction Status Date / Time Penicillins Allergy Unknown rash Verified 01/09/21 01:36 Review of Systems Review of Systems: ROS unable to be obtained due to advanced dementia [facility] Past Medical History Attestation statement: The following information was validated with the patient. Medical History (Updated 12/20/21 @ 14:17 by Aissatou Rodas DO) Alzheimers disease Atherosclerotic heart disease of [place] coronary artery without angina pectoris Barretts esophagus Dementia with behavioral disturbance Do not resuscitate status Di-aau-[id number] resuscitation status Essential hypertension Hyperlipidemia Social History Social History Alcohol intake: never Patient Tobacco Use Status: Tobacco use Unknown Advance Directives: Yes Advance Directives on File: Yes Advance Directives Date on File: 12/20/21 Physical Exam Vital Signs: Vital Signs: Last Vital Signs Temp 97.3 F 12/20/21 09:18 Pulse 78 12/20/21 09:18 Resp 18 12/20/21 09:18 BP 132/87 12/20/21 09:18 Pulse Ox 98 12/20/21 09:18 BMI result Body Mass Index 25.8 Appearance: Alert. will not answer questions - mumbles. No acute distress. Eyes: Pupils equal, round and reactive to light. ENT: Pharynx normal. Neck: Normal inspection. Neck supple. CVS: Normal heart rate and rhythm. Pulses normal. Respiratory: No respiratory distress. Breath sounds normal. Abdomen: Soft and non-tender. does not grimace Skin: Skin warm and dry. Normal skin color. Extremities: No lower extremity edema. No calf ttp Neuro: moves all extremities equally, does follow some commands, will not participate in exam. Course Course Course Narrative: bradycardic BP stable - EKG stable per our onsite case manager the patient is aggressive at baseline but today the biting was too much and they cannot handle that requesting psychiatric consult new thrombocytopenia hemoglobin stable - CT head/abdomen ordered to evaluate spleen and look for ICH COVID is negative - LFTS normal CT scan of head looks similar to prior December 2020 CT abdomen possible colitis no diarrhea, no abdominal pain to palpation no WBC count + constipation will dc back to facility and encourage bowel regimen cleared by CARE team MDM - Psych MDM Narrative Medical decision making narrative: 66 yo male with hx of CAD< HTN, HLD, advanced dementia with behavioral disturbance sent by SNF for aggressive behaviors, biting, PICA - at this time will obtain labs, UA - CARE team consult once medically cleared. CM involved to get more history on the patient as he was not sent over with any paperwork or records Lab Data Result diagrams: 12/20/21 10:02 12/20/21 10:02 Labs: Lab Results 12/20/21 12/20/21 12/20/21 Range/Units 10:02 10:02 10:02 WBC 8.5 (4.8-10.8) X10*3/uL RBC 4.39 L (4.60-5.80) X10*6/uL Hgb 12.8 L (14.0-18.0) g/dl Hct 40.8 L (42.0-52.0) % MCV 92.9 (80.0-98.0) fL MCH 29.2 (27.0-33.0) pg MCHC 31.4 (31.0-36.0) g/dl RDW 14.3 (11.0-16.0) % Plt Count 93 L D (160-400) X10*3/uL MPV 12.5 H (9.4-12.4) fL Immature Gran % (Auto) 0.2 (0.0-0.4) % Neut % (Auto) 58.2 (45-73) % Lymph % (Auto) 26.5 (20-40) % [place] % (Auto) 11.0 (2-11) % Eos % (Auto) 3.5 (0-4) % Baso % (Auto) 0.6 (0-2) % Lymph # (Auto) 2.3 (1.2-4.9) X10*3/uL [place] # (Auto) 0.9 (0.1-1.2) X10*3/uL Eos # (Auto) 0.3 (0.0-0.4) X10*3/uL Baso # (Auto) 0.1 (0.0-0.2) X10*3/uL Abs Immat Gran (auto) 0.02 (0.00-0.03) X10*3/uL Absolute Neuts (auto) 4.9 (2.0-8.3) x10*3/uL Absolute Nucleated RBC 0.000 (0.0-0.012) X10*3/uL Nucleated RBC % (auto) 0.0 (0.0-0.2) /100WBC Smear Tech's Comments VERIFIED Sodium 142 (135-145) mmol/L Potassium 4.3 (3.3-5.1) mmol/L Chloride 110 H (96-108) mmol/L Carbon Dioxide 25 (22-29) mmol/L Anion Gap 11 L (12-20) BUN 12 (9-16) mg/dL Creatinine 0.86 (0.5-1.4) mg/dL Estim Creat Clear Calc 79.5 Estimated GFR > 60 Random Glucose 88 (60-115) mg/dL Calcium 8.6 (8.4-10.2) mg/dL Magnesium 2.2 (1.6-2.6) mg/dL Total Bilirubin 0.6 (0.0-1.0) mg/dL Direct Bilirubin 0.2 (0.0-0.5) mg/dL AST 25 D (5-37) U/L ALT 22 (0-40) U/L Alkaline Phosphatase 90 D (39-117) U/L Total Protein 6.3 L (6.5-8.0) g/dL Albumin 3.7 (3.5-5.0) g/dL Valproic Acid 31.7 L (50.0-100.0) mcg/mL COVID-19 ([place]) Negative (Negative) COVID-19 Clin Com See Note ECG Data Attestation: I personally reviewed and interpreted this ECG as follows: ECG interpretation date: 12/20/21 ECG interpretation time: 10:16 Interpretation: Rate: 48 Rhythm: sinus bradycardia [place]: left Normal P waves. Normal MANJU. Normal QRS complex. ST T wave : no CORINNE, normal qTC: normal prior studies: no acute ischemia The study has been interpreted contemporaneously by me. . Discharge Plan Discharge Clinical Impression: Dementia with behavioral disturbance, Thrombocytopenia, Constipation Patient Disposition: er [facility] Transfer Details: [facility] Instructions: Constipation (ED), Dementia (ED) Additional Instructions: return to ED for any worsening symptoms or concerns PLATELETS ARE 98 THIS SHOULD BE RECHECKED IN TWO DAYS HOLD ASPIRIN please start on a bowel regimen of colace, senna, lactulose daily to help the patient start to have regular BMs he was cleared by the CARE team possible colitis though no WBC count or diarrhea - would monitor and hold antibiotics at this point GASTROINTESTINAL TRACT: A large amount of stool is present in the rectosigmoid. There is colonic bowel wall thickening, new since prior which involves the ascending colon, transverse colon and proximal descending which may represent colitis. The small bowel is unremarkable. The appendix is unremarkable.? ABDOMINAL WALL: No significant hernia is appreciated.? LYMPH NODES: Normal. VASCULAR: Unremarkable. PELVIC VISCERA: There is mild BPH.? OSSEOUS STRUCTURES: Degenerative changes are present in the spine with scoliosis convex to the right. Benign-appearing stable cyst is noted in the right femoral head along with a sclerotic density in the left iliac bone adjacent to the SI joint.. CT/CT abdomen pelvis wo con IMPRESSION: There is mucosal thickening involving the descending transverse and proximal descending colon, new since the prior study of 09/14/2021. Differential diagnosis would include colitis. ? Other incidental findings as described above. ? Fleischner guidelines were followed. Referrals: YVES HONG [Primary Care Provider] - 1 day
--- NOTE | 2021-12-20 09:16 | ECG_ITS ---
Test Reason : behavioral change/ crisis Blood Pressure : / mmHG Vent. Rate : 048 BPM Atrial Rate : 048 BPM P-R Int : 162 ms QRS Dur : 080 ms QT Int : 500 ms P-R-T Axes : 054 -15 -02 degrees QTc Int : 446 ms Sinus bradycardia Nonspecific ST and T wave abnormality Borderline ECG When compared to the previous EKG of 12/20/2020, rate is slower Referred By: Aissatou Rodas Electronically Signed By:IZZY FRENCH
[2021-12-20 09:18] VITALS: BP 132/87; BP 136/74; PULSE 78; PULSE 80; RESP 18; TEMP 36.3; O2SAT 98; O2SAT 99; BMI 25.8
[2021-12-20 10:17] LABS: Hematocrit 40.8 % (42.0-52.0); Imm Gran Abs Auto 0.02 X10*3/uL (0.00-0.03); Imm Gran Pct Auto 0.2 % (0.0-0.4); MANUAL DIFF FLAG SCAN; PLT CLUMP 1; SCAN SMEAR FLAG 1
[2021-12-20 10:18] LABS: Basophils Absolute Auto 0.1 X10*3/uL (0.0-0.2); Basophils Percent Auto 0.6 % (0-2); Eosinophils Absolute Auto 0.3 X10*3/uL (0.0-0.4); Eosinophils Percent Auto 3.5 % (0-4); Hemoglobin 12.8 g/dl (14.0-18.0); Lymphocytes Absolute Auto 2.3 X10*3/uL (1.2-4.9); Lymphocytes Percent Auto 26.5 % (20-40); Mean Corpuscular HGB Conc 31.4 g/dl (31.0-36.0); Mean Corpuscular Hemoglobin 29.2 pg (27.0-33.0); Mean Corpuscular Volume 92.9 fL (80.0-98.0); Mean Platelet Volume 12.5 fL (9.4-12.4); Monocytes Absolute Auto 0.9 X10*3/uL (0.1-1.2); Neutrophils Absolute Auto 4.9 x10*3/uL (2.0-8.3); Neutrophils Percent Auto 58.2 % (45-73); Red Blood Count 4.39 X10*6/uL (4.60-5.80); Red Cell Distribution Width 14.3 % (11.0-16.0)
[2021-12-20 10:33] LABS: Alanine Aminotransferase 22 U/L (0-40); Albumin Level 3.7 g/dL (3.5-5.0); Alkaline Phosphatase 90 U/L (39-117); Anion Gap 11 (12-20); Aspartate Amino Transferase 25 U/L (5-37); Bilirubin Direct 0.2 mg/dL (0.0-0.5); Bilirubin Total 0.6 mg/dL (0.0-1.0); Blood Urea Nitrogen 12 mg/dL (9-16); Calcium 8.6 mg/dL (8.4-10.2); Carbon Dioxide 25 mmol/L (22-29); Chloride 110 mmol/L (96-108); Creatinine Clr Calc Pharmacy 79.5; Estimated Glomerular Filt Rate > 60; Glucose Random 88 mg/dL (60-115); Magnesium 2.2 mg/dL (1.6-2.6); Potassium 4.3 mmol/L (3.3-5.1); Sodium 142 mmol/L (135-145); Total Protein 6.3 g/dL (6.5-8.0)
[2021-12-20 10:37] LABS: White Blood Count 8.5 X10*3/uL (4.8-10.8)
[2021-12-20 10:38] LABS: Platelet Count 93 X10*3/uL (160-400)
[2021-12-20 10:39] LABS: SLIDE REVIEW VERIFIED
[2021-12-20 10:41] LABS: COVID-19 Test Negative (Negative)
[2021-12-20 11:13] LABS: Valproate 31.7 mcg/mL (50.0-100.0)
--- NOTE | 2021-12-20 14:04 | MHC.CARE ---
CARE Team spoke with Ephraim Marlow RN who reported at baseline; pt has aggressive behavior, wanders , has pica like behaviors and puts everything in his mouth including biting things. Pt is reportedly not off of his baseline and it is formality that Pt was transported to the ED. Pt does not require further psychiatric assessment or intervention at this time. CARE Team reviewed case with JOSE Armas.
--- NOTE | 2021-12-20 14:55 | MHC.CM.ED ---
Addendum entered by Dia Quinones 12/20/21 14:57: Left mesage for , Roland at [phone], explaining patient would return to [facility]. Original Note: Received notification from Care Team that patient is cleared to return to [facility]. [facility] aware. Action BLS booked. Med nec with chart. Continue to monitor for d/c needs.
== END 2021-12-20 19:10 | disposition skilled nursing facility (03) ==
PROVIDERS: Emergency Provider Emergency Medicine; PCP Emergency Medicine
DX: F01.51 Vascular dementia, unspecified severity, with behavioral disturbance (principal); R41.82 Altered mental status, unspecified; D69.49 Other primary thrombocytopenia; K59.00 Constipation, unspecified; Z20.822 Contact with and (suspected) exposure to COVID-19; Z79.899 Other long term (current) drug therapy
CPT/HCPCS: 36415; 70450; 74176; 80048; 80076; 80164; 83735; 85025; 87635; 93005; 99285

== ENCOUNTER 2022-02-02 16:12 | Emergency (ER) | payer MEDICARE, OTHER, SELFPAY ==
--- NOTE | ~2022-02-02 | CT_ITS ---
EXAMINATION: CT HEAD WITHOUT CONTRAST CLINICAL INFORMATION: Seizure. COMPARISON: CT head from 12/20/2021. TECHNIQUE: Contiguous axial imaging was performed from the skull base to vertex without intravenous administration of contrast. DLP: 766 mGy-cm FINDINGS: There is no evidence of acute intracranial hemorrhage or edematous territorial infarction. Confluent hypoattenuation in the periventricular and deep white matter. [place]-white matter differentiation is preserved. There is a degree of generalized cerebral volume loss with prominence of both the ventricles and sulcal spaces that likely disproportionately involves the frontotemporal lobes. However, there also appears to be disproportionate prominence of the ventricles. The posterior callosal angle is borderline (85 degrees) when measured on a corrected coronal image, orthogonal to the anterior commissure-posterior commissure line. No evidence for obstructive hydrocephalus. No abnormal mass effect or midline shift. No extra-axial fluid collections. No acute soft tissue or osseous abnormalities. Mild mucosal thickening of the paranasal sinuses. The mastoid air cells and middle ear cavities are clear. CT/CT head/brain wo con IMPRESSION: 1. No evidence of acute intracranial hemorrhage or edematous territorial infarction. 2. Extensive underlying microangiopathy and generalized cerebral volume loss. Volume loss appears to be disproportionately involving the frontotemporal lobes. 3. Furthermore, there also appears to be mildly disproportionate prominence of the ventricles relative to the sulcal spaces. This may be due to disproportionate central volume loss; however, correlation with symptoms of potentially superimposed normal pressure hydrocephalus is recommended.
--- NOTE | ~2022-02-02 | XR_ITS ---
EXAMINATION: XR chest 1V CLINICAL INFORMATION: AMS COMPARISON: Prior chest x-ray 09/14/2021 TECHNIQUE: Portable chest x-ray 4:41 PM exam limited by patient's position, [place] obscuring the lung apices. Tubes and lines: None Lungs and pleura: Mild prominence of the pulmonary vasculature. No hector failure. Diminished lung volume partly positional. Heart and mediastinum: The mediastinum is within normal limits.. Bones/soft tissue: Skeletal structures included are normal for patient's age. XR/XR chest 1V IMPRESSION: Mild prominence of the pulmonary vasculature. Diminished lung volume exaggerated by positioning.
[2022-02-02 16:27] VITALS: BP 124/76; PULSE 94; O2SAT 97
--- NOTE | 2022-02-02 16:30 | ED.SEIZURE ---
HPI - Seizure General Chief Complaint: General Medical Stated Complaint: seizure Time Seen by Provider: 02/02/22 16:30 Source: EMS Mode of arrival: EMS Limitations: altered mental status History of Present Illness HPI Narrative: Patient with history of Alzheimer's dementia came from jail for having an episode of shaking. Patient does have history of essential tremors. Patient was not postictal no incontinence no tongue bite no fever no vomiting patient is at baseline otherwise patient had similar episode yesterday at the time patient upper extremity got stiff and eyes up rolled per record patient does not have a history of seizures takes Depakote for Behavioral reason Related Data Allergies Allergy/AdvReac Type Severity Reaction Status Date / Time Penicillins Allergy Unknown rash Verified 01/09/21 01:36 Review of Systems Review of Systems: Yes Unobtainable due to mental status PMFSH Past Medical History Medical History Alzheimers disease Atherosclerotic heart disease of [place] coronary artery without angina pectoris Barretts esophagus Dementia with behavioral disturbance Do not resuscitate status [id number] resuscitation status Essential hypertension Hyperlipidemia Social History Social History Alcohol intake: never Patient Tobacco Use Status: Tobacco use Unknown Advance Directives: Yes Advance Directives on File: Yes Advance Directives Date on File: 12/20/21 Physical Exam Vital Signs: Vital Signs: Last Vital Signs Temp 98.2 F 02/02/22 22:20 Pulse 73 02/02/22 22:20 Resp 16 02/02/22 22:20 BP 132/73 02/02/22 22:20 Pulse Ox 98 02/02/22 22:20 O2 Del Method 02/02/22 22:20 BMI result Body Mass Index 27.9 Appearance: Alert. Oriented X1. No acute distress. Eyes: PERRLA, No Nystagmus ENT: Pharynx normal. Oral Mucosa moist Neck: Normal inspection. Neck supple. CVS: Normal heart rate and rhythm. Pulses normal. Respiratory: No respiratory distress. Equal air entry bilateral, no wheezing/rales/rhonchi Abdomen: Soft and nontender. Bowel sounds are present, no mass palpable, no CVA tenderness Skin: Skin warm and dry. Normal skin color. Normal skin turgor. Extremities: No lower extremity edema. No calf tenderness Neuro: Oriented X 1. No motor deficit. No sensory deficit.No cerebellar signs , cranial nerves II-XII intact patient does have intention tremors MDM - Seizure MDM Narrative Medical decision making narrative: Patient has stable labs with no acute finding and CT of the head during stay patient was at baseline had few episodes of intention tremors without any loss consciousness discharge patient back to jail with diagnosis of essential tremors Lab Data Attestation: I reviewed the patient's lab results. Result diagrams: 02/02/22 19:11 02/02/22 19:11 Labs: Lab Results 02/02/22 02/02/22 Range/Units 19:11 19:11 WBC 10.0 (4.8-10.8) X10*3/uL RBC 4.19 L (4.60-5.80) X10*6/uL Hgb 12.3 L (14.0-18.0) g/dl Hct 36.7 L (42.0-52.0) % MCV 87.6 (80.0-98.0) fL MCH 29.4 (27.0-33.0) pg MCHC 33.5 (31.0-36.0) g/dl RDW 15.1 (11.0-16.0) % Plt Count 171 D (160-400) X10*3/uL MPV 11.0 (9.4-12.4) fL Immature Gran % (Auto) 0.3 (0.0-0.4) % Neut % (Auto) 58.5 (45-73) % Lymph % (Auto) 23.7 (20-40) % [place] % (Auto) 15.5 H (2-11) % Eos % (Auto) 1.6 (0-4) % Baso % (Auto) 0.4 (0-2) % Lymph # (Auto) 2.4 (1.2-4.9) X10*3/uL [place] # (Auto) 1.5 H (0.1-1.2) X10*3/uL Eos # (Auto) 0.2 (0.0-0.4) X10*3/uL Baso # (Auto) 0.0 (0.0-0.2) X10*3/uL Abs Immat Gran (auto) 0.03 (0.00-0.03) X10*3/uL Absolute Neuts (auto) 5.8 (2.0-8.3) x10*3/uL Absolute Nucleated RBC 0.000 (0.0-0.012) X10*3/uL Nucleated RBC % (auto) 0.0 (0.0-0.2) /100WBC Sodium 139 (135-145) mmol/L Potassium 4.1 (3.3-5.1) mmol/L Chloride 108 (96-108) mmol/L Carbon Dioxide 23 (22-29) mmol/L Anion Gap 12 (12-20) BUN 16 (9-16) mg/dL Creatinine 1.31 (0.5-1.4) mg/dL Estim Creat Clear Calc 56.7 Estimated GFR 54 Random Glucose 111 (60-115) mg/dL Calcium 8.5 (8.4-10.2) mg/dL Total Bilirubin < 0.2 (0.0-1.0) mg/dL AST 22 (5-37) U/L ALT 28 (0-40) U/L Alkaline Phosphatase 121 H D (39-117) U/L Total Protein 6.3 L (6.5-8.0) g/dL Albumin 3.8 (3.5-5.0) g/dL Discharge Plan Discharge Clinical Impression: Benign essential tremor Patient Disposition: Xfer SNF Instructions: Tremors (ED) Additional Instructions: Follow with PCP/neurologist if any episode of gross seizure activity likely patient's symptoms were because of tremors
[2022-02-02 16:51] VITALS: BMI 27.9
[2022-02-02 19:18] LABS: MANUAL DIFF FLAG NO
[2022-02-02 19:19] LABS: Basophils Percent Auto 0.4 % (0-2); Eosinophils Absolute Auto 0.2 X10*3/uL (0.0-0.4); Eosinophils Percent Auto 1.6 % (0-4); Hematocrit 36.7 % (42.0-52.0); Hemoglobin 12.3 g/dl (14.0-18.0); Imm Gran Abs Auto 0.03 X10*3/uL (0.00-0.03); Imm Gran Pct Auto 0.3 % (0.0-0.4); Lymphocytes Absolute Auto 2.4 X10*3/uL (1.2-4.9); Lymphocytes Percent Auto 23.7 % (20-40); Mean Corpuscular HGB Conc 33.5 g/dl (31.0-36.0); Mean Corpuscular Hemoglobin 29.4 pg (27.0-33.0); Mean Corpuscular Volume 87.6 fL (80.0-98.0); Monocytes Absolute Auto 1.5 X10*3/uL (0.1-1.2); Monocytes Percent Auto 15.5 % (2-11); Neutrophils Absolute Auto 5.8 x10*3/uL (2.0-8.3); Neutrophils Percent Auto 58.5 % (45-73); Platelet Count 171 X10*3/uL (160-400); Red Blood Count 4.19 X10*6/uL (4.60-5.80); Red Cell Distribution Width 15.1 % (11.0-16.0); SCAN SMEAR FLAG 1
[2022-02-02 19:20] VITALS: BP 156/79; PULSE 78; RESP 20; TEMP 36.6; O2SAT 96
[2022-02-02 19:48] LABS: Alanine Aminotransferase 28 U/L (0-40); Albumin Level 3.8 g/dL (3.5-5.0); Alkaline Phosphatase 121 U/L (39-117); Anion Gap 12 (12-20); Aspartate Amino Transferase 22 U/L (5-37); Bilirubin Total < 0.2 mg/dL (0.0-1.0); Blood Urea Nitrogen 16 mg/dL (9-16); Calcium 8.5 mg/dL (8.4-10.2); Carbon Dioxide 23 mmol/L (22-29); Chloride 108 mmol/L (96-108); Creatinine Clr Calc Pharmacy 56.7; Estimated Glomerular Filt Rate 54; Glucose Random 111 mg/dL (60-115); Potassium 4.1 mmol/L (3.3-5.1); Sodium 139 mmol/L (135-145); Total Protein 6.3 g/dL (6.5-8.0)
[2022-02-02 22:20] VITALS: BP 132/73; PULSE 73; RESP 16; TEMP 36.8; O2SAT 98
== END 2022-02-03 00:51 | disposition skilled nursing facility (03) ==
PROVIDERS: Emergency Provider Internal Medicine; PCP Emergency Medicine
DX: G25.0 Essential tremor (principal); G30.9 Alzheimer's disease, unspecified; F02.80 Dementia in other diseases classified elsewhere, unspecified severity, without behavioral disturbance, psychotic disturbance, mood disturbance, and anxiety; I10 Essential (primary) hypertension; E78.5 Hyperlipidemia, unspecified; Z66 Do not resuscitate
CPT/HCPCS: 36415; 70450; 71045; 80053; 85025; 99284

== ENCOUNTER 2022-08-09 09:51 | Emergency (ER) | payer MEDICARE, OTHER, SELFPAY ==
--- NOTE | ~2022-08-09 | XR_ITS ---
EXAMINATION: XR CHEST CLINICAL INFORMATION: Chest pain COMPARISON: Previous chest x-ray January 2022 TECHNIQUE: Frontal view of the chest was obtained. FINDINGS: No significant abnormality is noted involving the heart, lungs, mediastinum, bony thorax or soft tissues. XR/XR chest 1V IMPRESSION: Unremarkable examination.
--- NOTE | ~2022-08-09 | CT_ITS ---
EXAMINATION: CT HEAD WITHOUT CONTRAST CLINICAL INFORMATION: Seizure. COMPARISON: Head CT scan dated 02/02/2022. TECHNIQUE: Contiguous axial imaging was performed from the skull base to vertex without intravenous administration of contrast. Coronal and sagittal reformatted images were obtained. This CT examination was performed using dose optimization techniques as appropriate, variously including the following: *Automated exposure control *Adjustment of mA and/or kV according to patient size (this includes techniques or standardized protocols for targeted exams where dose is matched to indication/reason for exam; i.e. extremities or head) *Use of iterative reconstruction technique DLP: 731 mGy-cm FINDINGS: There is moderate widening of the cortical sulci and associated ventriculomegaly. The lateral ventricles are symmetrical. Callosal angle is normal. Mild periventricular vascular changes are seen. The third and fourth ventricles are in their normal midline position. The basilar and prepontine cisterns are unremarkable. There is no acute intra or extracerebral abnormality. There is no mass effect or midline shift. Sections through the bony calvarium are unremarkable. The orbits are intact. The paranasal sinuses show mild to moderate mucosal thickening in the bilateral maxillary and ethmoid sinuses. No air-fluid levels. The mastoid air cells are clear. CT/CT head/brain wo IV con IMPRESSION: No acute intracranial pathology.
[2022-08-09 10:02] VITALS: BP 137/74; BP 197/74; PULSE 64; PULSE 69; PULSE 72; RESP 16; TEMP 36.7; O2SAT 96; O2SAT 97; BMI 27.8
--- NOTE | 2022-08-09 10:32 | ECG_ITS ---
Test Reason : CHEST PAIN Blood Pressure : / mmHG Vent. Rate : 067 BPM Atrial Rate : 067 BPM P-R Int : 154 ms QRS Dur : 078 ms QT Int : 416 ms P-R-T Axes : 037 -21 007 degrees QTc Int : 439 ms Artifact in tracing Normal sinus rhythm Normal ECG When compared with ECG of 20-DEC-2021 10:04, No significant change was found Referred By: Oren Ny Electronically Signed By:IZZY FRENCH
--- NOTE | 2022-08-09 10:34 | ED.SEIZURE ---
HPI - Seizure General Chief Complaint: Seizure Stated Complaint: MULTIPLE SZ IN 2 DAYS PER EMS Time Seen by Provider: 08/09/22 10:24 Source: patient Mode of arrival: EMS Limitations: no limitations History of Present Illness HPI Narrative: This is an 67 years old man from the care home , with history of dementia, nonverbal baseline and does not follow commands at baseline. Sent few for evaluation because he had 2 episode of tremors in the care home. There was no tongue biting no urine incontinence. He arrived awake and alert. MD complaint: possible seizure Onset (ago): hour(s) (2) Description of Episode: other (tremors) Trauma: No Seizure History: No Place: [place] home Related Data Previous Rx's Medication Instructions Recorded nitrofurantoin 100 mg PO BID #10 caps 08/09/22 monohydrate/macrocrystals 100 mg capsule (Macrobid) Allergies Allergy/AdvReac Type Severity Reaction Status Date / Time Penicillins Allergy Unknown rash Verified 01/09/21 01:36 Review of Systems Review of Systems: Yes Unobtainable due to mental condition (dementia non verbal at baseline) [facility] Past Medical History Medical History Alzheimers disease Atherosclerotic heart disease of [place] coronary artery without angina pectoris Barretts esophagus Dementia with behavioral disturbance Do not resuscitate status [id number] resuscitation status Essential hypertension Hyperlipidemia Social History Social History Alcohol intake: never Patient Tobacco Use Status: Tobacco use Unknown Advance Directives Date on File: 12/20/21 Physical Exam Vital Signs: Vital Signs: Last Vital Signs Temp 98.0 F 08/09/22 18:10 Pulse 76 08/09/22 18:10 Resp 18 08/09/22 18:10 BP 153/80 H 08/09/22 18:10 Pulse Ox 97 08/09/22 18:10 O2 Del Method 08/09/22 18:10 BMI result Body Mass Index 27.8 Const: Other: He looks well is not toxic-appearing is awake and alert smiling HEENT: Head: Yes normal to inspection General nose exam: Normal external nose present Mouth: Normal oral and palatal mucosa present Neck: Neck: Yes normal visual inspection Chest: Chest palpation & inspection: normal inspection of the chest Resp: Effort & Inspection: normal respiratory effort Auscultation: clear to auscultation bilaterally Cardio: Rate: regular rate Rhythm: regular rhythm GI: Inspection: Yes normal to inspection Palpation (GI): Soft to palpation, not firm, nontender and no guarding Skin: General skin exam: no rashes or lesions noted and elasticity normal Neuro: Other: Is awake and alert he is no verbal does no follow command baseline Course Reevaluation(s) Reevaluation #1: Remains stable afebrile nontoxic. Urine noted, sodium noted will give him a bolus of 1/2 normal saline and a dose of antibiotic before discharge Reevaluation #2: I am off shift now ,repeat labs pending will sign out to Dr Gonsalves Medications Administered Discontinued Medications Generic Name Dose Route Start Last Admin Trade Name Freq PRN Reason Stop Dose Admin Dextrose/Sodium Chloride 1,000 mls @ 999 mls/hr 08/09/22 14:30 08/09/22 19:19 D51/2ns IVCONT Not Given .Q1H1M JOSH Ceftriaxone Sodium 1 gm/ 50 mls @ 100 mls/hr 08/09/22 14:23 08/09/22 17:30 Sodium Chloride IV 08/09/22 14:52 Infused ONCE ONE Infusion Medical Decision Making Differential Diagnosis rigor/pseudoseizure/seizure/tremors Admission/Observation Consideration of admission/observation: Escalation of care including admission/observation considered Lab Data Result Diagrams: 08/09/22 13:09 08/09/22 16:35 Labs: Lab Results 08/09/22 08/09/22 08/09/22 Range/Units 13:09 13:09 13:09 WBC 8.9 (4.8-10.8) X10*3/uL RBC 4.55 L (4.60-5.80) X10*6/uL Hgb 13.5 L (14.0-18.0) g/dl Hct 41.8 L (42.0-52.0) % MCV 91.9 (80.0-98.0) fL MCH 29.7 (27.0-33.0) pg MCHC 32.3 (31.0-36.0) g/dl RDW 13.9 (11.0-16.0) % Plt Count 100 L D (160-400) X10*3/uL MPV 12.1 (9.4-12.4) fL Immature Gran % (Auto) 0.6 H (0.0-0.4) % Neut % (Auto) 62.6 (45-73) % Lymph % (Auto) 25.2 (20-40) % [place] % (Auto) 8.6 (2-11) % Eos % (Auto) 2.5 (0-4) % Baso % (Auto) 0.5 (0-2) % Lymph # (Auto) 2.2 (1.2-4.9) X10*3/uL [place] # (Auto) 0.8 (0.1-1.2) X10*3/uL Eos # (Auto) 0.2 (0.0-0.4) X10*3/uL Baso # (Auto) 0.0 (0.0-0.2) X10*3/uL Abs Immat Gran (auto) 0.05 H (0.00-0.03) X10*3/uL Absolute Neuts (auto) 5.6 (2.0-8.3) x10*3/uL Absolute Nucleated RBC 0.000 (0.0-0.012) X10*3/uL Nucleated RBC % (auto) 0.0 (0.0-0.2) /100WBC Sodium 146 H (135-145) mmol/L Potassium 4.0 (3.3-5.1) mmol/L Chloride 114 H (96-108) mmol/L Carbon Dioxide 26 (22-29) mmol/L Anion Gap 10 L (12-20) BUN 15 (9-16) mg/dL Creatinine 0.84 (0.5-1.4) mg/dL Estim Creat Clear Calc 87.1 Estimated GFR > 60 Random Glucose 99 (60-115) mg/dL Calcium 8.8 (8.4-10.2) mg/dL Total Bilirubin 0.5 (0.0-1.0) mg/dL AST 21 (5-37) U/L ALT 19 (0-40) U/L Alkaline Phosphatase 124 H (39-117) U/L Troponin I High Sens < 3.5 (<3.5-35.0) ng/L Total Protein 6.7 (6.5-8.0) g/dL Albumin 3.9 (3.5-5.0) g/dL 08/09/22 Range/Units 16:35 WBC (4.8-10.8) X10*3/uL RBC (4.60-5.80) X10*6/uL Hgb (14.0-18.0) g/dl Hct (42.0-52.0) % MCV (80.0-98.0) fL MCH (27.0-33.0) pg MCHC (31.0-36.0) g/dl RDW (11.0-16.0) % Plt Count (160-400) X10*3/uL MPV (9.4-12.4) fL Immature Gran % (Auto) (0.0-0.4) % Neut % (Auto) (45-73) % Lymph % (Auto) (20-40) % [place] % (Auto) (2-11) % Eos % (Auto) (0-4) % Baso % (Auto) (0-2) % Lymph # (Auto) (1.2-4.9) X10*3/uL [place] # (Auto) (0.1-1.2) X10*3/uL Eos # (Auto) (0.0-0.4) X10*3/uL Baso # (Auto) (0.0-0.2) X10*3/uL Abs Immat Gran (auto) (0.00-0.03) X10*3/uL Absolute Neuts (auto) (2.0-8.3) x10*3/uL Absolute Nucleated RBC (0.0-0.012) X10*3/uL Nucleated RBC % (auto) (0.0-0.2) /100WBC Sodium 144 (135-145) mmol/L Potassium 3.3 (3.3-5.1) mmol/L Chloride 112 H (96-108) mmol/L Carbon Dioxide 26 (22-29) mmol/L Anion Gap 9 L (12-20) BUN 14 (9-16) mg/dL Creatinine 0.81 (0.5-1.4) mg/dL Estim Creat Clear Calc 90.3 Estimated GFR > 60 Random Glucose 105 (60-115) mg/dL Calcium 8.4 (8.4-10.2) mg/dL Total Bilirubin (0.0-1.0) mg/dL AST (5-37) U/L ALT (0-40) U/L Alkaline Phosphatase (39-117) U/L Troponin I High Sens (<3.5-35.0) ng/L Total Protein (6.5-8.0) g/dL Albumin (3.5-5.0) g/dL Radiology Impression Discussion of test interpretation with radiology: I have reviewed the radiologist's reading. Radiologist Impression: *Adjustment of mA and/or kV according to patient size (this includes techniques or standardized protocols for targeted exams where dose is matched to indication/reason for exam; i.e. extremities or head) *Use of iterative reconstruction technique DLP: 731 mGy-cm FINDINGS: There is moderate widening of the cortical sulci and associated ventriculomegaly. The lateral ventricles are symmetrical. Callosal angle is normal. Mild periventricular vascular changes are seen. The third and fourth ventricles are in their normal midline position. The basilar and prepontine cisterns are unremarkable. There is no acute intra or extracerebral abnormality. There is no mass effect or midline shift. Sections through the bony calvarium are unremarkable. The orbits are intact. The paranasal sinuses show mild to moderate mucosal thickening in the bilateral maxillary and ethmoid sinuses. No air-fluid levels. The mastoid air cells are clear. CT/CT head/brain wo IV con IMPRESSION: No acute intracranial pathology. Discharge Plan Discharge Clinical Impression: Acute UTI, Hypernatremia Patient Disposition: Still a Patient Instructions: Urinary Tract Infection in Men (ED) Prescriptions: New nitrofurantoin monohyd/m-cryst [Macrobid] 100 mg capsule 100 mg PO BID Qty: 10 0RF Rx Instructions: must administer with a meal/food Interventions: ED Discharge Assessment Last Done: 08/09/22 19:23 Discharge Date/Time: 08/09/22 19:25
[2022-08-09 13:16] LABS: MANUAL DIFF FLAG NO
[2022-08-09 13:23] VITALS: BP 143/85; PULSE 74; RESP 16; TEMP 37; O2SAT 97
[2022-08-09 13:23] LABS: Basophils Percent Auto 0.5 % (0-2); Eosinophils Absolute Auto 0.2 X10*3/uL (0.0-0.4); Eosinophils Percent Auto 2.5 % (0-4); Hematocrit 41.8 % (42.0-52.0); Hemoglobin 13.5 g/dl (14.0-18.0); Imm Gran Abs Auto 0.05 X10*3/uL (0.00-0.03); Imm Gran Pct Auto 0.6 % (0.0-0.4); Lymphocytes Absolute Auto 2.2 X10*3/uL (1.2-4.9); Lymphocytes Percent Auto 25.2 % (20-40); Mean Corpuscular HGB Conc 32.3 g/dl (31.0-36.0); Mean Corpuscular Hemoglobin 29.7 pg (27.0-33.0); Mean Corpuscular Volume 91.9 fL (80.0-98.0); Mean Platelet Volume 12.1 fL (9.4-12.4); Monocytes Absolute Auto 0.8 X10*3/uL (0.1-1.2); Monocytes Percent Auto 8.6 % (2-11); Neutrophils Absolute Auto 5.6 x10*3/uL (2.0-8.3); Neutrophils Percent Auto 62.6 % (45-73); Platelet Count 100 X10*3/uL (160-400); Red Blood Count 4.55 X10*6/uL (4.60-5.80); Red Cell Distribution Width 13.9 % (11.0-16.0); White Blood Count 8.9 X10*3/uL (4.8-10.8)
[2022-08-09 13:42] LABS: Alanine Aminotransferase 19 U/L (0-40); Albumin Level 3.9 g/dL (3.5-5.0); Alkaline Phosphatase 124 U/L (39-117); Anion Gap 10 (12-20); Aspartate Amino Transferase 21 U/L (5-37); Bilirubin Total 0.5 mg/dL (0.0-1.0); Blood Urea Nitrogen 15 mg/dL (9-16); Calcium 8.8 mg/dL (8.4-10.2); Carbon Dioxide 26 mmol/L (22-29); Chloride 114 mmol/L (96-108); Creatinine Clr Calc Pharmacy 87.1; Estimated Glomerular Filt Rate > 60; Glucose Random 99 mg/dL (60-115); Sodium 146 mmol/L (135-145); Total Protein 6.7 g/dL (6.5-8.0)
[2022-08-09 13:51] LABS: Troponin-I High Sensitivity < 3.5 ng/L (<3.5-35.0)
[2022-08-09] MEDS: cefTRIAXone sodium 1 GM in 0.9 % Sodium Chloride 50 ML IV (14:39)
[2022-08-09] MEDS: Dextrose 5 % and 0.45 % NaCl 1,000 ML 999 ML IVCONT (14:39)
[2022-08-09 16:59] LABS: Anion Gap 9 (12-20); Blood Urea Nitrogen 14 mg/dL (9-16); Calcium 8.4 mg/dL (8.4-10.2); Carbon Dioxide 26 mmol/L (22-29); Chloride 112 mmol/L (96-108); Creatinine Clr Calc Pharmacy 90.3; Estimated Glomerular Filt Rate > 60; Glucose Random 105 mg/dL (60-115); Potassium 3.3 mmol/L (3.3-5.1); Sodium 144 mmol/L (135-145)
[2022-08-09 18:10] VITALS: BP 153/80; PULSE 76; RESP 18; TEMP 36.7; O2SAT 97
== END 2022-08-09 19:25 | disposition still patient (30) ==
PROVIDERS: Emergency Provider Emergency Medicine; PCP Emergency Medicine
DX: N39.0 Urinary tract infection, site not specified (principal); R56.9 Unspecified convulsions; R07.89 Other chest pain; E87.0 Hyperosmolality and hypernatremia; Z79.899 Other long term (current) drug therapy; Z20.822 Contact with and (suspected) exposure to COVID-19
CPT/HCPCS: 36415; 70450; 71045; 80048; 80053; 84484; 85025; 93005; 96361; 96374; 99284; J0696

== ENCOUNTER 2022-11-24 09:35 | Inpatient (IN) | payer MEDICARE, OTHER, SELFPAY ==
[2022-11-24] VITALS (10 sets, daily range): BP systolic 107–154; BP diastolic 63–98; PULSE 65–99; RESP 15–17; TEMP 36.4–37.3; O2SAT 94–98; BMI 27.2
--- NOTE | ~2022-11-24 | XR_ITS ---
EXAMINATION: XR CHEST CLINICAL INFORMATION: Emesis, rule out aspiration. COMPARISON: 08/09/2022 chest radiograph. TECHNIQUE: Frontal view of the chest was obtained. FINDINGS: No significant abnormality is noted involving the heart, lungs, mediastinum, bony thorax or soft tissues. XR/XR chest 1V IMPRESSION: No acute cardiopulmonary process.
--- NOTE | 2022-11-24 09:42 | ECG_ITS ---
Test Reason : vomiting Blood Pressure : / mmHG Vent. Rate : 075 BPM Atrial Rate : 000 BPM P-R Int : 000 ms QRS Dur : 078 ms QT Int : 356 ms P-R-T Axes : 000 -18 -01 degrees QTc Int : 397 ms Artifact in tracing Normal sinus rhythm - likely Nonspecific ST and T wave abnormality Abnormal ECG When compared with ECG of 09-AUG-2022 12:36, No significant changes seen Referred By: Gabriel Evans Electronically Signed By:IZZY FRENCH
[2022-11-24 10:10] LABS: MANUAL DIFF FLAG NO
--- NOTE | 2022-11-24 10:10 | ED_ITS ---
HPI - General Adult General Chief complaint: GI Bleed Stated complaint: VOMITING COFFEE GROUND EMESIS FROM SNF PER EMS Time Seen by Provider: 11/24/22 09:37 Source: patient Mode of arrival: ambulatory Limitations: no limitations History of Present Illness HPI narrative: 67-year-old male with history of dementia from detention presents with 1 day of nausea vomiting. detention suggest he has had coffee-ground emesis. There has been no reports of melanotic stools. She has had no fevers or chills. There has been no complaints of abdominal pain. No clear relieving or exacerbating features. Patent they report 5-6 episodes of emesis. He does have a history of Jackson's esophagus. There has been no prior treatment. Related Data Home Medications Medication Instructions Recorded Confirmed atorvastatin 80 mg tablet 80 mg PO DAILY 11/24/22 11/24/22 citalopram 10 mg tablet 15 mg PO DAILY 11/24/22 11/24/22 divalproex 125 mg capsule,delayed 125 mg PO BID 11/24/22 11/24/22 release sprinkle docusate sodium 100 mg capsule 200 mg PO BID 11/24/22 11/24/22 (Colace) donepezil 23 mg tablet 23 mg PO DAILY 11/24/22 11/24/22 gabapentin 100 mg capsule 200 mg PO DAILY 11/24/22 11/24/22 gabapentin 300 mg capsule 300 mg PO BEDTIME 11/24/22 11/24/22 hydroxyzine HCl 25 mg tablet 25 mg PO TID PRN Anxiety 11/24/22 11/24/22 melatonin 3 mg tablet 3 mg PO BEDTIME PRN Insomnia 11/24/22 11/24/22 memantine 10 mg tablet 10 mg PO BID 11/24/22 11/24/22 metoprolol succinate 25 mg 12.5 mg PO DAILY 11/24/22 11/24/22 tablet,extended release 24 hr omeprazole 20 mg capsule,delayed 20 mg PO DAILY 11/24/22 11/24/22 release polyethylene glycol 3350 17 gram 17 g PO DAILY 11/24/22 11/24/22 oral powder packet (Miralax) risperidone 0.25 mg tablet 0.25 mg PO DAILY@1400 11/24/22 11/24/22 risperidone 0.5 mg disintegrating 0.5 mg PO BEDTIME 11/24/22 11/24/22 tablet Allergies Allergy/AdvReac Type Severity Reaction Status Date / Time Penicillins Allergy Unknown rash Verified 01/09/21 01:36 [facility] Past Medical History Medical History Alzheimers disease Atherosclerotic heart disease of [place] coronary artery without angina pectoris Barretts esophagus Dementia with behavioral disturbance Do not resuscitate status [id number] resuscitation status Essential hypertension Hyperlipidemia Social History Social History Alcohol intake: unknown Patient Tobacco Use Status: Tobacco use Unknown Smoked in Last 30 Days: No Use of substances other than those prescribed or required for medical reasons: No Advance Directives: Yes Advance Directives on File: Yes Advance Directives Date on File: 12/20/21 Physical Exam ED Vital Signs: Vital Signs - 24 hr 11/24/22 09:40 11/24/22 10:17 11/24/22 11:30 Temperature 99.1 F Pulse Rate 69 71 72 Respiratory Rate 16 16 16 Blood Pressure 145/87 H 154/73 H Pulse Oximetry 95 95 Oxygen Delivery Method Room Air Room Air 11/24/22 12:35 11/24/22 13:06 Temperature Pulse Rate 69 69 Respiratory Rate 16 16 Blood Pressure 147/84 H 152/88 H Pulse Oximetry 98 97 Oxygen Delivery Method Room Air Room Air BMI result Body Mass Index 27.2 GEN: Well developed, no acute distress, alert, HEENT: Normocephalic, atraumatic, normal external ears, nose appears normal, no oropharyngeal edema or exudates Eyes: Normal to appearance Neck: Supple, no lymphadenopathy Respiratory: Talks in complete sentences, no respiratory distress, clear to auscultation bilaterally Cardiovascular: Regular rate and rhythm, no murmurs rubs or gallops Abdomen: Soft, nontender, nondistended, no guarding, no rebound Back: No CVA tenderness Extremities: No clubbing cyanosis or edema Neurologic: No focal neurologic deficits, cranial nerves 2-12 intact, strength is 5/5 bilaterally, Skin: No rash : To external hemorrhoids, no active bleeding, brown stool sent for occult blood testing Course Course Course Narrative: 67-year-old male presents for possible upper GI bleed. Patient reportedly had some coffee-ground emesis. Examination is benign with no abdominal tenderness, rebound or guarding. There is no melanotic stool. Will provide patient is with antiemetics, IV fluids, ppi, check laboratory results and a chest x-ray we had to rule out perforation. Reevaluation(s) Reevaluation #1: Will call a sepsis alert. Has an elevated white count [id number], lactic acid greater than 3 ordered a 30 cc/kilogram IV fluid bolus. No source has been identified will consider broad-spectrum antibiotics at this time. Time: 10:28 Reevaluation #2: spoke with family., Medications Administered Discontinued Medications Generic Name Dose Route Start Last Admin Trade Name Freq PRN Reason Stop Dose Admin Sodium Chloride 1,000 mls @ 999 mls/hr 11/24/22 09:45 11/24/22 13:05 Ns IV 11/24/22 10:45 Infused .Q1H1M JOSH Infusion Sodium Chloride 2,511 mls @ 2,511 mls/hr 11/24/22 10:27 11/24/22 13:05 Ns 30 ml/kg infuse over 1 hr (2511 ml) 11/24/22 11:26 Infused IV Infusion .Q1H STA Ceftriaxone Sodium 1 gm/ 50 mls @ 100 mls/hr 11/24/22 10:28 11/24/22 13:05 Sodium Chloride IV 11/24/22 10:57 Infused ONCE ONE Infusion Ondansetron HCl 4 mg 11/24/22 09:42 11/24/22 10:14 Ondansetron Hcl 4 Mg/2 Ml Vial IVPUSH 11/24/22 09:43 4 mg ONCE ONE Administration Pantoprazole Sodium 80 mg 11/24/22 09:42 11/24/22 10:14 Pantoprazole Sodium 40 Mg/10 Ml Vial IVPUSH 11/24/22 09:43 80 mg ONCE ONE Administration Medical Decision Making Medical Decision Making MDM Narrative: 67-year-old male presents for possible upper GI bleed. Patient reportedly had some coffee-ground emesis. Examination is benign with no abdominal tenderness, rebound or guarding. There is no melanotic stool. Will provide patient is with antiemetics, IV fluids, ppi, check laboratory results and a chest x-ray we had to rule out perforation. Differential Diagnosis Differential Diagnoses: The differential diagnosis associated with the presentation includes (Gastroenteritis, upper GI bleed, nausea/vomiting, electrolyte abnormality) possible UGI bleed, leukocytosis, lactic acidosis Admission/Observation Consideration of admission/observation: Escalation of care including admission/observation considered Lab Data MDM Lab Attestation statement: I reviewed the patient's lab results. 11/24/22 10:01 11/24/22 10:01 Labs: Lab Results 11/24/22 11/24/22 11/24/22 Range/Units 10:01 10:01 10:01 WBC 16.1 H (4.8-10.8) X10*3/uL RBC 4.92 (4.60-5.80) X10*6/uL Hgb 14.4 (14.0-18.0) g/dl Hct 44.1 (42.0-52.0) % MCV 89.6 (80.0-98.0) fL MCH 29.3 (27.0-33.0) pg MCHC 32.7 (31.0-36.0) g/dl RDW 14.6 (11.0-16.0) % Plt Count 146 L D (160-400) X10*3/uL MPV 11.9 (9.4-12.4) fL Immature Gran % (Auto) 0.5 H (0.0-0.4) % Neut % (Auto) 79.8 H (45-73) % Lymph % (Auto) 10.8 L (20-40) % [place] % (Auto) 8.6 (2-11) % Eos % (Auto) 0.1 (0-4) % Baso % (Auto) 0.2 (0-2) % Lymph # (Auto) 1.7 (1.2-4.9) X10*3/uL [place] # (Auto) 1.4 H (0.1-1.2) X10*3/uL Eos # (Auto) 0.0 (0.0-0.4) X10*3/uL Baso # (Auto) 0.0 (0.0-0.2) X10*3/uL Abs Immat Gran (auto) 0.08 H (0.00-0.03) X10*3/uL Absolute Neuts (auto) 12.8 H (2.0-8.3) x10*3/uL Absolute Nucleated RBC 0.000 (0.0-0.012) X10*3/uL Nucleated RBC % (auto) 0.0 (0.0-0.2) /100WBC Sodium (135-145) mmol/L Potassium (3.3-5.1) mmol/L Chloride (96-108) mmol/L Carbon Dioxide (22-29) mmol/L Anion Gap (12-20) BUN (9-16) mg/dL Creatinine (0.5-1.4) mg/dL Estim Creat Clear Calc Estimated GFR Random Glucose (60-115) mg/dL Lactic Acid 3.2 H* (0.5-2.0) mmol/L Lactic Acid F/U @ 2Hr (0.5-2.0) mmol/L Calcium (8.4-10.2) mg/dL Total Bilirubin (0.0-1.0) mg/dL AST (5-37) U/L ALT (0-40) U/L Alkaline Phosphatase (39-117) U/L Troponin I High Sens (<3.5-35.0) ng/L Total Protein (6.5-8.0) g/dL Albumin (3.5-5.0) g/dL Lipase (8-78) U/L Urine Color Urine Appearance Urine pH (5.0-9.0) Ur Specific [place] (1.005-1.025) Urine Protein (Neg-Trace) mg/dL Urine Glucose (UA) (Negative) mg/dL Urine Ketones (Negative) mg/dL Urine Blood (Negative) Urine Nitrite (Negative) Ur Leukocyte Esterase (Negative) Urine RBC (0-2) /HPF Urine WBC (0-5) /HPF Ur Squamous Epith Cells (0-2) /HPF Urine Bacteria (None Seen) Hyaline Casts (0-2) /LPF Stool Occult Blood (NEGATIVE) COVID-19 ([place]) Negative (Negative) COVID-19 Clin Com See Note 11/24/22 11/24/22 11/24/22 Range/Units 10:01 10:01 11:10 WBC (4.8-10.8) X10*3/uL RBC (4.60-5.80) X10*6/uL Hgb (14.0-18.0) g/dl Hct (42.0-52.0) % MCV (80.0-98.0) fL MCH (27.0-33.0) pg MCHC (31.0-36.0) g/dl RDW (11.0-16.0) % Plt Count (160-400) X10*3/uL MPV (9.4-12.4) fL Immature Gran % (Auto) (0.0-0.4) % Neut % (Auto) (45-73) % Lymph % (Auto) (20-40) % [place] % (Auto) (2-11) % Eos % (Auto) (0-4) % Baso % (Auto) (0-2) % Lymph # (Auto) (1.2-4.9) X10*3/uL [place] # (Auto) (0.1-1.2) X10*3/uL Eos # (Auto) (0.0-0.4) X10*3/uL Baso # (Auto) (0.0-0.2) X10*3/uL Abs Immat Gran (auto) (0.00-0.03) X10*3/uL Absolute Neuts (auto) (2.0-8.3) x10*3/uL Absolute Nucleated RBC (0.0-0.012) X10*3/uL Nucleated RBC % (auto) (0.0-0.2) /100WBC Sodium 143 (135-145) mmol/L Potassium 4.2 D (3.3-5.1) mmol/L Chloride 113 H (96-108) mmol/L Carbon Dioxide 23 (22-29) mmol/L Anion Gap 11 L (12-20) BUN 20 H (9-16) mg/dL Creatinine 0.93 (0.5-1.4) mg/dL Estim Creat Clear Calc 74.9 Estimated GFR > 60 Random Glucose 106 (60-115) mg/dL Lactic Acid (0.5-2.0) mmol/L Lactic Acid F/U @ 2Hr (0.5-2.0) mmol/L Calcium 7.7 L D (8.4-10.2) mg/dL Total Bilirubin 0.4 (0.0-1.0) mg/dL AST 22 (5-37) U/L ALT 26 (0-40) U/L Alkaline Phosphatase 84 (39-117) U/L Troponin I High Sens 4.0 (<3.5-35.0) ng/L Total Protein 5.8 L (6.5-8.0) g/dL Albumin 3.5 (3.5-5.0) g/dL Lipase 12 (8-78) U/L Urine Color Urine Appearance Urine pH (5.0-9.0) Ur Specific [place] (1.005-1.025) Urine Protein (Neg-Trace) mg/dL Urine Glucose (UA) (Negative) mg/dL Urine Ketones (Negative) mg/dL Urine Blood (Negative) Urine Nitrite (Negative) Ur Leukocyte Esterase (Negative) Urine RBC (0-2) /HPF Urine WBC (0-5) /HPF Ur Squamous Epith Cells (0-2) /HPF Urine Bacteria (None Seen) Hyaline Casts (0-2) /LPF Stool Occult Blood NEGATIVE (NEGATIVE) COVID-19 ([place]) (Negative) COVID-19 Clin Com 11/24/22 11/24/22 Range/Units 11:25 12:35 WBC (4.8-10.8) X10*3/uL RBC (4.60-5.80) X10*6/uL Hgb (14.0-18.0) g/dl Hct (42.0-52.0) % MCV (80.0-98.0) fL MCH (27.0-33.0) pg MCHC (31.0-36.0) g/dl RDW (11.0-16.0) % Plt Count (160-400) X10*3/uL MPV (9.4-12.4) fL Immature Gran % (Auto) (0.0-0.4) % Neut % (Auto) (45-73) % Lymph % (Auto) (20-40) % [place] % (Auto) (2-11) % Eos % (Auto) (0-4) % Baso % (Auto) (0-2) % Lymph # (Auto) (1.2-4.9) X10*3/uL [place] # (Auto) (0.1-1.2) X10*3/uL Eos # (Auto) (0.0-0.4) X10*3/uL Baso # (Auto) (0.0-0.2) X10*3/uL Abs Immat Gran (auto) (0.00-0.03) X10*3/uL Absolute Neuts (auto) (2.0-8.3) x10*3/uL Absolute Nucleated RBC (0.0-0.012) X10*3/uL Nucleated RBC % (auto) (0.0-0.2) /100WBC Sodium (135-145) mmol/L Potassium (3.3-5.1) mmol/L Chloride (96-108) mmol/L Carbon Dioxide (22-29) mmol/L Anion Gap (12-20) BUN (9-16) mg/dL Creatinine (0.5-1.4) mg/dL Estim Creat Clear Calc Estimated GFR Random Glucose (60-115) mg/dL Lactic Acid (0.5-2.0) mmol/L Lactic Acid F/U @ 2Hr 1.7 (0.5-2.0) mmol/L Calcium (8.4-10.2) mg/dL Total Bilirubin (0.0-1.0) mg/dL AST (5-37) U/L ALT (0-40) U/L Alkaline Phosphatase (39-117) U/L Troponin I High Sens (<3.5-35.0) ng/L Total Protein (6.5-8.0) g/dL Albumin (3.5-5.0) g/dL Lipase (8-78) U/L Urine Color Yellow Urine Appearance Clear Urine pH 8.0 (5.0-9.0) Ur Specific [place] 1.025 (1.005-1.025) Urine Protein Trace (Neg-Trace) mg/dL Urine Glucose (UA) Negative (Negative) mg/dL Urine Ketones Trace (Negative) mg/dL Urine Blood Small (1+) H (Negative) Urine Nitrite Negative (Negative) Ur Leukocyte Esterase Small (1+) H (Negative) Urine RBC 11-20 H (0-2) /HPF Urine WBC 11-20 H (0-5) /HPF Ur Squamous Epith Cells 0-2 (0-2) /HPF Urine Bacteria None Seen (None Seen) Hyaline Casts 0-2 (0-2) /LPF Stool Occult Blood (NEGATIVE) COVID-19 ([place]) (Negative) COVID-19 Clin Com Independent Interpretation I performed an independent interpretation of an: EKG (Normal sinus rhythm heart rate 75, normal intervals, no acute ST elevations depressions, nonspecific diffuse T-wave flattening and inversion, no evidence of ischemia) Prescription Management I considered prescription management with: Pain Medication and Antibiotic Chronic Conditions Patient?s care impacted by: Other (Dementia) Discharge Plan Discharge Clinical Impression: Nausea & vomiting, Acute upper gastrointestinal bleeding, Leukocytosis, Acidosis, lactic Patient Disposition: Admitted As Inpatient
[2022-11-24 10:12] LABS: Basophils Percent Auto 0.2 % (0-2); Eosinophils Percent Auto 0.1 % (0-4); Hematocrit 44.1 % (42.0-52.0); Hemoglobin 14.4 g/dl (14.0-18.0); Imm Gran Abs Auto 0.08 X10*3/uL (0.00-0.03); Imm Gran Pct Auto 0.5 % (0.0-0.4); Lymphocytes Absolute Auto 1.7 X10*3/uL (1.2-4.9); Lymphocytes Percent Auto 10.8 % (20-40); Mean Corpuscular HGB Conc 32.7 g/dl (31.0-36.0); Mean Corpuscular Hemoglobin 29.3 pg (27.0-33.0); Mean Corpuscular Volume 89.6 fL (80.0-98.0); Mean Platelet Volume 11.9 fL (9.4-12.4); Monocytes Absolute Auto 1.4 X10*3/uL (0.1-1.2); Monocytes Percent Auto 8.6 % (2-11); Neutrophils Absolute Auto 12.8 x10*3/uL (2.0-8.3); Neutrophils Percent Auto 79.8 % (45-73); Platelet Count 146 X10*3/uL (160-400); Red Blood Count 4.92 X10*6/uL (4.60-5.80); Red Cell Distribution Width 14.6 % (11.0-16.0); White Blood Count 16.1 X10*3/uL (4.8-10.8)
[2022-11-24 10:13] LABS: OBS Int Ctl Valid YES; OBS1 NEGATIVE (NEGATIVE)
[2022-11-24] MEDS: Pantoprazole Sodium 40 MG/10 ML VIAL 80 MG IVPUSH (10:14)
[2022-11-24] MEDS: ondansetron HCL 4 MG/2 ML VIAL IVPUSH (10:14)
[2022-11-24] MEDS: 0.9 % Sodium Chloride 1,000 ML 999 ML IV (10:14)
--- NOTE | 2022-11-24 10:21 | PC.NURSE ---
Pt is alert, non verbal at baseline per EMS. NSR on monitor. Skin pwd. Afebrile rectal temp 99.1. No s/sx of pain/discomfort, no guarding/grimace. Hiccups since arrival to ED. Suctioned at bedside set up for precaution. IV established, fluids infusing and meds admin as charted. Labs sent with stool occult card. No bld thinner use noted on EMAR print sent from SNF
[2022-11-24 10:26] LABS: COVID-19 Test Negative (Negative); IDNOW Serial# 08D9AD1C
[2022-11-24 10:27] LABS: Lactic Acid 3.2 mmol/L (0.5-2.0)
--- NOTE | 2022-11-24 10:45 | PC.NURSE ---
Difficult straight IV stick, attempting to obtained second set cultures at this time x 3 attempts
--- NOTE | 2022-11-24 10:57 | PHA.MEDREC ---
Pharmacy Consult ? Medication Reconciliation Pharmacy has completed the medication reconciliation.
[2022-11-24] MEDS: cefTRIAXone sodium 1 GM in 0.9 % Sodium Chloride 50 ML IV (11:29)
--- NOTE | 2022-11-24 11:31 | PC.NURSE ---
able to obtain second set and straight cath. Abx started. VSS.
[2022-11-24 11:34] LABS: Appearance Urine Clear; Color Urine Yellow; Glucose Urine UA Negative (Negative); Leukocyte Esterase Urine Small (1+) (Negative); Nitrite Urine Negative (Negative); Specific Gravity - Urine 1.025 (1.005-1.025); UMIC TRIGGER UACC YES; Urine Blood Small (1+) (Negative); Urine Ketones Trace mg/dL (Negative); Urine Protein Trace mg/dL (Neg-Trace)
[2022-11-24 11:36] LABS: Alanine Aminotransferase 26 U/L (0-40); Albumin Level 3.5 g/dL (3.5-5.0); Alkaline Phosphatase 84 U/L (39-117); Anion Gap 11 (12-20); Aspartate Amino Transferase 22 U/L (5-37); Bilirubin Total 0.4 mg/dL (0.0-1.0); Blood Urea Nitrogen 20 mg/dL (9-16); Calcium 7.7 mg/dL (8.4-10.2); Carbon Dioxide 23 mmol/L (22-29); Chloride 113 mmol/L (96-108); Creatinine Clr Calc Pharmacy 74.9; Estimated Glomerular Filt Rate > 60; Glucose Random 106 mg/dL (60-115); Lipase 12 U/L (8-78); Potassium 4.2 mmol/L (3.3-5.1); Sodium 143 mmol/L (135-145); Total Protein 5.8 g/dL (6.5-8.0)
[2022-11-24 11:42] LABS: Bacteria Urine None Seen (None Seen); Hyaline Casts Urine 0-2 /LPF (0-2); Squamous Epithelial Cell Urine 0-2 /HPF (0-2); UACC Culture Trigger YES
--- NOTE | 2022-11-24 11:55 | P.HPHOSP_ITS ---
History of Present Illness Date of Service: 11/24/22 Chief Complaint: Nausea and vomiting Pt is a 67-year-old male with a PMH significant for?Alzheimer's with behavioral disturbances, CAD, HTN, HLD, and Jackson's esophagus who presents to the ED with?an episode of coffee-ground emesis this morning after breakfast. Patient is nonverbal at baseline. HPI provided by staff at [facility] where he is a resident. Staff report that patient had 2-3 episodes of vomiting last night; there is no description of the vomitus some unclear any bright red blood or coffee ground emesis was present. This a.m. patient had an episode of vomiting after breakfast with coffee-ground emesis. Was shown to the nurse practitioner the suggestive patient come to the ED for further evaluation for possible GI bleed. Staff at nursing [facility] report patient was afebrile with no signs of infection, behavioral changes from baseline, or signs of discomfort/pain. In the ED patient was afebrile but slightly hypertensive at 154/73. Labs were significant for leukocytosis of 16.1, H&H WNL at 14.4/44.1, and lactic acid 3.2. UA negative for UTI. Stool negative for occult blood. CXR showed no acute cardiopulmonary process. EKG demonstrated likely normal sinus rhythm with artifact tracings, but no evidence of ST elevations or depressions. Pt was treated with ceftriaxone, IVF, ondansetron, and pantoprazole. Pt will be admitted to the hospital for treatment of further evaluation of possible upper GI bleed. Review of Systems Review of Systems: Unable to obtain due to patient's mentation. [facility] Medical History Alzheimers disease Atherosclerotic heart disease of [place] coronary artery without angina pectoris Barretts esophagus Dementia with behavioral disturbance Do not resuscitate status Ab-[id number] resuscitation status Essential hypertension Hyperlipidemia Social History Alcohol intake: unknown Patient Tobacco Use Status: Tobacco use Unknown Smoked in Last 30 Days: No Use of substances other than those prescribed or required for medical reasons: No Advance Directives: Yes Advance Directives on File: Yes Advance Directives Date on File: 12/20/21 Meds Allergies Allergy/AdvReac Type Severity Reaction Status Date / Time Penicillins Allergy Unknown rash Verified 01/09/21 01:36 Active Medications: Current Medications Pharmacy Consult (Consult Rx Perform Med Rec) 1 each MISCELLANE ONCE PRN PRN Reason: Consult order Home Medications Medication Instructions Recorded Confirmed Last Taken Type atorvastatin 80 mg tablet 80 mg PO DAILY 11/24/22 11/24/22 Unknown History citalopram 10 mg tablet 15 mg PO DAILY 11/24/22 11/24/22 Unknown History divalproex 125 mg capsule,delayed 125 mg PO BID 11/24/22 11/24/22 Unknown History release sprinkle docusate sodium 100 mg capsule 200 mg PO BID 11/24/22 11/24/22 Unknown History (Colace) donepezil 23 mg tablet 23 mg PO DAILY 11/24/22 11/24/22 Unknown History gabapentin 100 mg capsule 200 mg PO DAILY 11/24/22 11/24/22 Unknown History gabapentin 300 mg capsule 300 mg PO BEDTIME 11/24/22 11/24/22 Unknown History hydroxyzine HCl 25 mg tablet 25 mg PO TID PRN Anxiety 11/24/22 11/24/22 Unknown History melatonin 3 mg tablet 3 mg PO BEDTIME PRN Insomnia 11/24/22 11/24/22 Unknown History memantine 10 mg tablet 10 mg PO BID 11/24/22 11/24/22 Unknown History metoprolol succinate 25 mg 12.5 mg PO DAILY 11/24/22 11/24/22 Unknown History tablet,extended release 24 hr omeprazole 20 mg capsule,delayed 20 mg PO DAILY 11/24/22 11/24/22 Unknown History release polyethylene glycol 3350 17 gram 17 g PO DAILY 11/24/22 11/24/22 Unknown History oral powder packet (Miralax) risperidone 0.25 mg tablet 0.25 mg PO DAILY@1400 11/24/22 11/24/22 Unknown History risperidone 0.5 mg disintegrating 0.5 mg PO BEDTIME 11/24/22 11/24/22 Unknown History tablet Physical Exam Vital Signs and Narrative: Vital Signs: Last Vital Signs Temp 99.1 F 11/24/22 09:40 Pulse 72 11/24/22 11:30 Resp 16 11/24/22 11:30 BP 154/73 H 11/24/22 11:30 Pulse Ox 95 11/24/22 11:30 O2 Del Method Room Air 11/24/22 11:30 BMI result Body Mass Index 27.2 General: Pt somnolent, confused, in no acute distress Resp: CTA bilaterally CVS: S1, S2, RRR GI: +BS, NT, no distention Skin: No rash Neuro: Cranial nerves II-XII grossly intact bilaterally. Motor grossly intact bilaterally Extremities: No edema Results Labs 11/24/22 10:01 11/24/22 11:10 Labs: Laboratory Results - last 24 hr 11/24/22 11/24/22 11/24/22 10:01 10:01 10:01 MCV 89.6 MCH 29.3 MCHC 32.7 RDW 14.6 Plt Count 146 L D MPV 11.9 Immature Gran % (Auto) 0.5 H Neut % (Auto) 79.8 H Lymph % (Auto) 10.8 L [place] % (Auto) 8.6 Eos % (Auto) 0.1 Baso % (Auto) 0.2 Lymph # (Auto) 1.7 [place] # (Auto) 1.4 H Eos # (Auto) 0.0 Baso # (Auto) 0.0 Abs Immat Gran (auto) 0.08 H Absolute Neuts (auto) 12.8 H Absolute Nucleated RBC 0.000 Nucleated RBC % (auto) 0.0 Anion Gap Estim Creat Clear Calc Estimated GFR Random Glucose Lactic Acid 3.2 H* Calcium Total Bilirubin AST ALT Alkaline Phosphatase Troponin I High Sens Total Protein Albumin Lipase Urine Color Urine Appearance Urine pH Ur Specific [place] Urine Protein Urine Glucose (UA) Urine Ketones Urine Blood Urine Nitrite Ur Leukocyte Esterase Urine RBC Urine WBC Ur Squamous Epith Cells Urine Bacteria Hyaline Casts Stool Occult Blood COVID-19 ([place]) Negative COVID-19 Clin Com See Note 11/24/22 11/24/22 11/24/22 10:01 10:01 11:10 MCV MCH MCHC RDW Plt Count MPV Immature Gran % (Auto) Neut % (Auto) Lymph % (Auto) [place] % (Auto) Eos % (Auto) Baso % (Auto) Lymph # (Auto) [place] # (Auto) Eos # (Auto) Baso # (Auto) Abs Immat Gran (auto) Absolute Neuts (auto) Absolute Nucleated RBC Nucleated RBC % (auto) Anion Gap 11 L Estim Creat Clear Calc 74.9 Estimated GFR > 60 Random Glucose 106 Lactic Acid Calcium 7.7 L D Total Bilirubin 0.4 AST 22 ALT 26 Alkaline Phosphatase 84 Troponin I High Sens 4.0 Total Protein 5.8 L Albumin 3.5 Lipase 12 Urine Color Urine Appearance Urine pH Ur Specific [place] Urine Protein Urine Glucose (UA) Urine Ketones Urine Blood Urine Nitrite Ur Leukocyte Esterase Urine RBC Urine WBC Ur Squamous Epith Cells Urine Bacteria Hyaline Casts Stool Occult Blood NEGATIVE COVID-19 ([place]) COVID-19 Clin Com 11/24/22 11:25 MCV MCH MCHC RDW Plt Count MPV Immature Gran % (Auto) Neut % (Auto) Lymph % (Auto) [place] % (Auto) Eos % (Auto) Baso % (Auto) Lymph # (Auto) [place] # (Auto) Eos # (Auto) Baso # (Auto) Abs Immat Gran (auto) Absolute Neuts (auto) Absolute Nucleated RBC Nucleated RBC % (auto) Anion Gap Estim Creat Clear Calc Estimated GFR Random Glucose Lactic Acid Calcium Total Bilirubin AST ALT Alkaline Phosphatase Troponin I High Sens Total Protein Albumin Lipase Urine Color Yellow Urine Appearance Clear Urine pH 8.0 Ur Specific [place] 1.025 Urine Protein Trace Urine Glucose (UA) Negative Urine Ketones Trace Urine Blood Small (1+) H Urine Nitrite Negative Ur Leukocyte Esterase Small (1+) H Urine RBC 11-20 H Urine WBC 11-20 H Ur Squamous Epith Cells 0-2 Urine Bacteria None Seen Hyaline Casts 0-2 Stool Occult Blood COVID-19 ([place]) COVID-19 Clin Com Imaging Radiologist's Impressions: Impressions Chest X-Ray 11/24/22 11:12 IMPRESSION: No acute cardiopulmonary process. Assessment and Plan (1) Nausea & vomiting: Status: Acute Plan Pt is a 67-year-old male with a PMH significant for?Alzheimer's with behavioral disturbances, CAD, HTN, HLD, and Jackson's esophagus who presents to the ED with?an episode of coffee-ground emesis this morning after breakfast. Patient is nonverbal at baseline. HPI provided by staff at [facility] where he is a resident. Pt will be admitted to the hospital for treatment of further evaluation of possible upper GI bleed. Question of upper GI bleed Patient with reported episode of coffee-ground emesis this a.m. Patient has not vomited since, none witnessed in the ED Stool negative for occult blood Differential: Eve-Enriquez tear vs peptic ulcer disease vs Barretts esophagus Protonix IV b.i.d. NPO, consider advancing to clear liquid diet tomorrow IVF GI consult Follow CBC q6hr Leukocytosis Patient presented with a leukocytosis of 16.1 Most likely reactive, no clear sign or source of infection: Patient afebrile, UA negative for UTI Patient given ceftriaxone and the ED Hold off on abx for now Patient does not meet sepsis criteria Follow CBC Elevated lactic acid, resolved Patient's initial lactic acid 3.2 with repeat 1.7 Likely secondary to dehydration, not sepsis Patient given IVF in the ED Diet Patient NPO in anticipation of possible GI procedure tomorrow According to staff at [facility], patient needs to be fed, is ground mechanical with thin liquids Speech and swallow evaluation prior to advancing diet Alzheimer's Seems stable, at baseline Continue memantine, donepezil HLD Continue statin Mood disorder Continue risperidone, divalproex DNR/DNI Attending:?Dr. Rodriguez DVT Prophylaxis: Pneumatic Boots Pt will require a hospitalization of at least two nights for treatment and further evaluation of?possible upper GI bleed. Time Spent With Patient Time: Total time managing care of this patient today ____ minutes. Quality Stroke Does the patient have a stroke diagnosis?: No VTE Prior VTE?: No VTE Risk Level:: Medical - moderate - high VTE Device Contraindication: N/A - Device Ordered VTE Drug Contraindication: Treatment Not Indicated
[2022-11-24 12:09] LABS: Reflex Lactate? Lactic Acid Added
--- NOTE | 2022-11-24 12:53 | MHC.EDTECH ---
pt was incontinent of urine. pt is now cleaned, fresh line and robe given, warm blankets given. pt appears comfortable. rn aware
[2022-11-24 13:00] LABS: ~Lactic Acid-LAB USE ONLY 1.7 mmol/L (0.5-2.0)
--- NOTE | 2022-11-24 13:08 | PC.NURSE ---
Fluids completed, BP stable as charted. No changes in pt status. Awaits admit orders
[2022-11-24] MEDS: Lactated Ringers 1,000 ML 100 ML IVCONT (15:16)
[2022-11-24] MEDS: 0.9 % Sodium Chloride Flush 3 ML SYRINGE IVFLUSH (15:17)
--- NOTE | 2022-11-24 15:17 | PC.NURSE ---
Pt asleep, eyes closed appears generally weak. Risperdone held. LR started at 100ml/hr. at bedside
--- NOTE | 2022-11-24 15:27 | P.CNGI_ITS ---
History of Present Illness Data of Consult Service Date: 11/24/22 Requesting physician: Mj Bennett Primary Care Provider: YVES HONG Reason for consult: Gi Bleeding 67 YM with Alzheimer's with behavioral disturbances, CAD, HTN, HLD, and Jackson's esophagus seen at [facility] ED on 11/24/22 after an episode of coffee-ground emesis this morning after breakfast.? Patient is nonverbal at baseline. History obtained from pt's who was at the bedside and from the staff at [facility] where he is a resident.? Staff reported patient had 2-3 episodes of vomiting last night; there is no description of the vomitus some unclear any bright red blood or coffee ground emesis was present.? This a.m. patient had an episode of vomiting after breakfast with coffee-ground emesis. Vomitus was shown to the nurse practitioner who advised transferring the patient come to the ED.? Staff at nursing [facility] reported patient was afebrile with no signs of infection, behavioral changes from baseline, or signs of discomfort/pain. Pt's reported pt has longstanding GERD and was previously followed by Dr Smiley ([facility] at [facility]). He was diagnosed with Barretts esophagus 6 to 7 yrs ago Last EGD was in 2016. Pt was diagnosed with primary progressive aphasia in 2015 or 2016. He was admitted to [facility] 2 years ago when he had worsening dementia and became combative. denies patient having major cardiac or pulmonary problems. Patient has sleep apnea and refused to wear a CPAP machine. He did not smoke and took alcohol occasionally. 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 Patient's family history is positive for esophageal cancer in his dad and Schatzki's ring in his mom. His is not aware any family history of colon polyps or colon cancer. In the ED patient was afebrile but slightly hypertensive at 154/73. Labs were significant for leukocytosis of 16.1, H&H WNL at 14.4/44.1, and lactic acid 3.2. UA negative for UTI. Stool negative for occult blood. CXR showed no acute cardiopulmonary process. EKG demonstrated likely normal sinus rhythm with artifact tracings, but no evidence of ST elevations or depressions. Pt was treated with ceftriaxone, IVF, ondansetron, and pantoprazole. He was admitted to the hospital for further management of suspected upper GI bleed. Review of Systems Review of Systems: Unable to obtain due to patient's mentation. [facility] Past Medical History Medical History (Updated 11/25/22 @ 13:39 by Maren Ascencio RN) Alzheimers disease Atherosclerotic heart disease of [place] coronary artery without angina pectoris Barretts esophagus Dementia with behavioral disturbance Do not resuscitate status [id number] resuscitation status Essential hypertension Hyperlipidemia Sleep apnea Social History Social History Household Members: Other Housing: Half-Way Do you presently have visiting nurse or other home services: No Alcohol intake: unknown Patient Tobacco Use Status: Never used Tobacco Advance Directives Date on File: 12/20/21 Meds Allergies Allergy/AdvReac Type Severity Reaction Status Date / Time Penicillins Allergy Unknown rash Verified 01/09/21 01:36 Active Medications: Current Medications Acetaminophen (Acetaminophen 325 Mg Tablet) 650 mg PO Q6H PRN PRN Reason: Pain, Mild (Pain Scale 1-3) Atorvastatin Calcium (Atorvastatin Calcium 80 Mg Tablet) 80 mg PO DAILY [facility] Divalproex Sodium (Divalproex Sodium Sprinkles 125 Mg Cap.) 125 mg PO BID [facility] Docusate Sodium (Docusate Sodium 100 Mg Capsule) 200 mg PO BID [facility] Donepezil HCl (Donepezil Hcl 10 Mg Tablet) 20 mg PO DAILY [facility] Escitalopram Oxalate (Escitalopram Oxalate 5 Mg Tablet) 5 mg PO DAILY [facility] Gabapentin (Gabapentin 100 Mg Capsule) 200 mg PO DAILY [facility] Gabapentin (Gabapentin 300 Mg Capsule) 300 mg PO BEDTIME [facility] Hydroxyzine HCl (Hydroxyzine Hcl 25 Mg Tablet) 25 mg PO TID PRN PRN Reason: Anxiety Lactated Ringer's (Lr) 1,000 mls @ 100 mls/hr IVCONT .Q10H [facility] Last Admin: 11/24/22 15:16 Dose: 100 mls/hr Melatonin (Melatonin 3 Mg Tablet) 3 mg PO BEDTIME PRN PRN Reason: Insomnia Memantine (Memantine Hcl 10 Mg Tablet) 10 mg PO BID [facility] Metoprolol Succinate (Metoprolol Succinate Er 12.5 Mg Halftab.Er.24h) 12.5 mg PO DAILY [facility]; Protocol Omeprazole (Omeprazole 20 Mg Kevin.) 20 mg PO DAILY [facility] Ondansetron HCl (Ondansetron Hcl 4 Mg/2 Ml Vial) 4 mg IVPUSH Q8H PRN PRN Reason: Nausea and Vomiting Pantoprazole Sodium (Pantoprazole Sodium 40 Mg/10 Ml Vial) 40 mg IVPUSH BID@0630,1630 [facility] Pharmacy Consult (Consult Rx Perform Med Rec) 1 each MISCELLANE ONCE PRN PRN Reason: Consult order Polyethylene Glycol (Polyethylene Glycol 3350 17 Gm Powd.Pack) 17 gm PO DAILY [facility] Risperidone (Risperidone 0.25 Mg Tablet) 0.25 mg PO DAILY@1400 [facility] Last Admin: 11/24/22 15:16 Dose: Not Given Risperidone (Risperidone 0.5 Mg Tablet) 0.5 mg PO BEDTIME [facility] Sodium Chloride (0.9 % Sodium Chloride Flush 3 Ml Syringe) 3 ml IVFLUSH QSHIFT [facility] Last Admin: 11/24/22 15:17 Dose: 3 ml Home Medications Medication Instructions Recorded Confirmed Last Taken Type atorvastatin 80 mg tablet 80 mg PO DAILY 11/24/22 11/24/22 Unknown History citalopram 10 mg tablet 15 mg PO DAILY 11/24/22 11/24/22 Unknown History divalproex 125 mg capsule,delayed 125 mg PO BID 11/24/22 11/24/22 Unknown History release sprinkle docusate sodium 100 mg capsule 200 mg PO BID 11/24/22 11/24/22 Unknown History (Colace) donepezil 23 mg tablet 23 mg PO DAILY 11/24/22 11/24/22 Unknown History gabapentin 100 mg capsule 200 mg PO DAILY 11/24/22 11/24/22 Unknown History gabapentin 300 mg capsule 300 mg PO BEDTIME 11/24/22 11/24/22 Unknown History hydroxyzine HCl 25 mg tablet 25 mg PO TID PRN Anxiety 11/24/22 11/24/22 Unknown History melatonin 3 mg tablet 3 mg PO BEDTIME PRN Insomnia 11/24/22 11/24/22 Unknown History memantine 10 mg tablet 10 mg PO BID 11/24/22 11/24/22 Unknown History metoprolol succinate 25 mg 12.5 mg PO DAILY 11/24/22 11/24/22 Unknown History tablet,extended release 24 hr omeprazole 20 mg capsule,delayed 20 mg PO DAILY 11/24/22 11/24/22 Unknown History release polyethylene glycol 3350 17 gram 17 g PO DAILY 11/24/22 11/24/22 Unknown History oral powder packet (Miralax) risperidone 0.25 mg tablet 0.25 mg PO DAILY@1400 11/24/22 11/24/22 Unknown History risperidone 0.5 mg disintegrating 0.5 mg PO BEDTIME 11/24/22 11/24/22 Unknown History tablet Physical Exam Vital Signs: Vital Signs: Last Vital Signs Temp 99.1 F 11/24/22 09:40 Pulse 65 11/24/22 15:17 Resp 16 11/24/22 15:17 BP 130/76 11/24/22 15:17 Pulse Ox 94 11/24/22 14:16 O2 Del Method Room Air 11/24/22 14:16 BMI result Body Mass Index 27.2 Const: General: no acute distress Nutritional Appearance: overweight Limitations: other limitations (non-verbal due to dementia) HEENT: Head: Yes normal to inspection Ears: hearing grossly normal bilatera lly Mouth: Normal oral and palatal mucosa present Eyes: Sclerae: sclerae normal Pupils: Equal, round and reactive pupils present Neck: Neck: Yes normal visual inspection Chest: Chest palpation & inspection: normal inspection of the chest Resp: Effort & Inspection: normal respiratory effort Auscultation: clear to auscultation bilaterally Cardio: Palpation: normal PMI Rate: regular rate Rhythm: regular rhythm Heart sounds: S1 normal heart sound present, S2 normal heart sound present and no murmurs GI: Palpation (GI): Soft to palpation, nontender and No hepatosplenomegaly present Auscultation: normal bowel sounds Rectal Exam - Male: Yes deferred Skin: General skin exam: no rashes or lesions noted Neuro: General: gait normal and moves all extremities Cranial nerves: Yes Equal, round and reactive pupils present Psych: Speech and movement: Other speech and movement exam findings present (Psych) (Nonverbal due to dementia) Insight: Poor insight present (Psych) Results Labs 11/24/22 10:01 11/24/22 11:10 Labs: Short CBC 11/24/22 Range/Units 10:01 WBC 16.1 H (4.8-10.8) X10*3/uL Hgb 14.4 (14.0-18.0) g/dl Hct 44.1 (42.0-52.0) % Plt Count 146 L D (160-400) X10*3/uL BMP 11/24/22 11:10 Sodium 143 Potassium 4.2 D Chloride 113 H Carbon Dioxide 23 BUN 20 H Creatinine 0.93 Calcium 7.7 L D Liver Function 11/24/22 Range/Units 11:10 Total Bilirubin 0.4 (0.0-1.0) mg/dL AST 22 (5-37) U/L ALT 26 (0-40) U/L Alkaline Phosphatase 84 (39-117) U/L Albumin 3.5 (3.5-5.0) g/dL Urine 11/24/22 Range/Units 11:25 Urine Color Yellow Urine Appearance Clear Urine pH 8.0 (5.0-9.0) Ur Specific [place] 1.025 (1.005-1.025) Urine Protein Trace (Neg-Trace) mg/dL Urine Glucose (UA) Negative (Negative) mg/dL Assessment and Plan (1) Acute upper gastrointestinal bleeding: Status: Acute Plan 67 YM with Alzheimer's with behavioral disturbances, CAD, HTN, HLD, and Jackson's esophagus seen at [facility] ED on 11/24/22 after an episode of coffee-ground emesis this morning after breakfast.? Patient is nonverbal at baseline. History obtained from pt's who was at the bedside and from the staff at [facility] where he is a resident.? Pt's reported pt has longstanding GERD and was previously followed by Dr Smiley ([facility] at [place]). Per pt's - he was diagnosed with Barretts esophagus 6 to 7 yrs ago and his last EGD was in 2016. Coffee ground emesis likely due to MW tear, erosive esophagitis, peptic ulcer disease. Given known history of Barretts, patient is at increased risk for esophageal cancer. RECOMMENDATIONS: 1. Agree with IV PPI and antiemetics 2. Monitor CBC daily 3. Pt is scheduled for an upper Endoscopy on 11/25/22 at 2 pm. Endoscopy procedure and potential complications including bleeding, perforation, reaction to anesthetic and aspiration pneumonia were reviewed with Roland France (patient's and HCP). Time Spent With Patient Time: Total time managing care of this patient today ____ minutes. Procedures Date of Service Date of Service: 11/24/22
--- NOTE | 2022-11-24 17:41 | PC.NURSE ---
Patient passed nursing swalowing screaning,CRISTI Bennett notified
[2022-11-24] MEDS: Pantoprazole Sodium 40 MG/10 ML VIAL IVPUSH (17:45)
[2022-11-24 17:48] LABS: Hemoglobin 12.6 g/dl (14.0-18.0); Mean Corpuscular HGB Conc 33.2 g/dl (31.0-36.0); Mean Corpuscular Hemoglobin 30.4 pg (27.0-33.0); Mean Corpuscular Volume 91.8 fL (80.0-98.0); Platelet Count 147 X10*3/uL (160-400); Red Blood Count 4.14 X10*6/uL (4.60-5.80); Red Cell Distribution Width 14.9 % (11.0-16.0); White Blood Count 13.3 X10*3/uL (4.8-10.8)
[2022-11-24] MEDS: Memantine HCl 10 MG TABLET PO (19:45)
[2022-11-24] MEDS: risperiDONE 0.5 MG TABLET PO (19:45)
[2022-11-24] MEDS: Gabapentin 300 MG CAPSULE PO (19:45)
[2022-11-24] MEDS: Divalproex Sodium Sprinkles 125 MG CAP.DR.SPR PO (19:46)
[2022-11-24] MEDS: Docusate Sodium 100 MG CAPSULE 200 MG PO (19:46)
[2022-11-25] VITALS (8 sets, daily range): BP systolic 124–150; BP diastolic 62–87; PULSE 57–70; RESP 16–18; TEMP 36.2–36.9; O2SAT 93–98
[2022-11-25] MEDS: Lactated Ringers 1,000 ML 100 ML IVCONT ×2 (00:32→11:44)
[2022-11-25] MEDS: Pantoprazole Sodium 40 MG/10 ML VIAL IVPUSH ×2 (05:38→16:06)
[2022-11-25 07:27] LABS: Anion Gap 11 (12-20); Blood Urea Nitrogen 12 mg/dL (9-16); Calcium 7.6 mg/dL (8.4-10.2); Carbon Dioxide 20 mmol/L (22-29); Chloride 112 mmol/L (96-108); Creatinine Clr Calc Pharmacy 88.2; Estimated Glomerular Filt Rate > 60; Glucose Random 82 mg/dL (60-115); Potassium 3.7 mmol/L (3.3-5.1); Sodium 139 mmol/L (135-145)
[2022-11-25] MEDS: Gabapentin 100 MG CAPSULE 200 MG PO (09:28)
[2022-11-25] MEDS: Donepezil HCl 10 MG TABLET 20 MG PO (09:28)
[2022-11-25] MEDS: Atorvastatin Calcium 80 MG TABLET PO (09:29)
[2022-11-25] MEDS: Metoprolol Succinate ER 12.5 MG HALFTAB.ER.24H PO (09:29)
[2022-11-25] MEDS: Memantine HCl 10 MG TABLET PO ×2 (09:29→20:06)
[2022-11-25] MEDS: Omeprazole 20 MG CAPSULE.DR PO (09:29)
[2022-11-25] MEDS: Docusate Sodium 100 MG CAPSULE 200 MG PO ×2 (09:29→20:07)
[2022-11-25] MEDS: Divalproex Sodium Sprinkles 125 MG CAP.DR.SPR PO ×2 (09:29→20:07)
[2022-11-25] MEDS: Escitalopram Oxalate 5 MG TABLET PO (09:29)
--- NOTE | 2022-11-25 14:08 | P.CONAN_ITS ---
HPI - Anesthesia Eval Consult details Narrative: Hematemesis, egd PMFSH Active Problems Active Problems: All Active Problems (Updated 11/25/22 @ 13:39 by Maren Ascencio RN) Pyuria (Acute) COVID-19 (Acute) Nausea & vomiting (Acute) Acute upper gastrointestinal bleeding (Acute) Leukocytosis (Acute) Acidosis, lactic (Acute) Past Medical History Medical History (Updated 11/25/22 @ 13:39 by Maren Ascencio RN) Alzheimers disease Atherosclerotic heart disease of [place] coronary artery without angina pectoris Barretts esophagus Dementia with behavioral disturbance Do not resuscitate status [id number] resuscitation status Essential hypertension Hyperlipidemia Sleep apnea Family History Family history of problems with anesthesia: No Surgical History History of Problems with Anesthesia: Yes Social History Social History Household Members: Other Housing: Snf Do you presently have visiting nurse or other home services: No Alcohol intake: unknown Patient Tobacco Use Status: Never used Tobacco Advance Directives Date on File: 12/20/21 Meds Allergies Allergy/AdvReac Type Severity Reaction Status Date / Time Penicillins Allergy Unknown rash Verified 01/09/21 01:36 Active Medications: Current Medications Acetaminophen (Acetaminophen 325 Mg Tablet) 650 mg PO Q6H PRN PRN Reason: Pain, Mild (Pain Scale 1-3) Atorvastatin Calcium (Atorvastatin Calcium 80 Mg Tablet) 80 mg PO DAILY [facility] Last Admin: 11/25/22 09:29 Dose: 80 mg Divalproex Sodium (Divalproex Sodium Sprinkles 125 Mg ) 125 mg PO BID [facility] Last Admin: 11/25/22 09:29 Dose: 125 mg Docusate Sodium (Docusate Sodium 100 Mg Capsule) 200 mg PO BID [facility] Last Admin: 11/25/22 09:29 Dose: 200 mg Donepezil HCl (Donepezil Hcl 10 Mg Tablet) 20 mg PO DAILY [facility] Last Admin: 11/25/22 09:28 Dose: 20 mg Escitalopram Oxalate (Escitalopram Oxalate 5 Mg Tablet) 5 mg PO DAILY [facility] Last Admin: 11/25/22 09:29 Dose: 5 mg Gabapentin (Gabapentin 100 Mg Capsule) 200 mg PO DAILY [facility] Last Admin: 11/25/22 09:28 Dose: 200 mg Gabapentin (Gabapentin 300 Mg Capsule) 300 mg PO BEDTIME [facility] Last Admin: 11/24/22 19:45 Dose: 300 mg Hydroxyzine HCl (Hydroxyzine Hcl 25 Mg Tablet) 25 mg PO TID PRN PRN Reason: Anxiety Lactated Ringer's (Lr) 1,000 mls @ 100 mls/hr IVCONT .Q10H [facility] Last Admin: 11/25/22 11:44 Dose: 100 mls/hr Melatonin (Melatonin 3 Mg Tablet) 3 mg PO BEDTIME PRN PRN Reason: Insomnia Memantine (Memantine Hcl 10 Mg Tablet) 10 mg PO BID [facility] Last Admin: 11/25/22 09:29 Dose: 10 mg Metoprolol Succinate (Metoprolol Succinate Er 12.5 Mg Halftab.Er.24h) 12.5 mg PO DAILY [facility]; Protocol Last Admin: 11/25/22 09:29 Dose: 12.5 mg Omeprazole (Omeprazole 20 Mg Capsule.Dr) 20 mg PO DAILY [facility] Last Admin: 11/25/22 09:29 Dose: 20 mg Ondansetron HCl (Ondansetron Hcl 4 Mg/2 Ml Vial) 4 mg IVPUSH Q8H PRN PRN Reason: Nausea and Vomiting Pantoprazole Sodium (Pantoprazole Sodium 40 Mg/10 Ml Vial) 40 mg IVPUSH BID@0630,1630 [facility] Last Admin: 11/25/22 05:38 Dose: 40 mg Pharmacy Consult (Consult Rx Perform Med Rec) 1 each MISCELLANE ONCE PRN PRN Reason: Consult order Polyethylene Glycol (Polyethylene Glycol 3350 17 Gm Powd.Pack) 17 gm PO DAILY [facility] Last Admin: 11/25/22 11:31 Dose: Not Given Risperidone (Risperidone 0.25 Mg Tablet) 0.25 mg PO DAILY@1400 [facility] Last Admin: 11/24/22 15:16 Dose: Not Given Risperidone (Risperidone 0.5 Mg Tablet) 0.5 mg PO BEDTIME [facility] Last Admin: 11/24/22 19:45 Dose: 0.5 mg Sodium Chloride (0.9 % Sodium Chloride Flush 3 Ml Syringe) 3 ml IVFLUSH QSHIFT [facility] Last Admin: 11/25/22 11:32 Dose: Not Given Home Medications Medication Instructions Recorded Confirmed Last Taken Type atorvastatin 80 mg tablet 80 mg PO DAILY 11/24/22 11/24/22 Unknown History citalopram 10 mg tablet 15 mg PO DAILY 11/24/22 11/24/22 Unknown History divalproex 125 mg capsule,delayed 125 mg PO BID 11/24/22 11/24/22 Unknown History release sprinkle docusate sodium 100 mg capsule 200 mg PO BID 11/24/22 11/24/22 Unknown History (Colace) donepezil 23 mg tablet 23 mg PO DAILY 11/24/22 11/24/22 Unknown History gabapentin 100 mg capsule 200 mg PO DAILY 11/24/22 11/24/22 Unknown History gabapentin 300 mg capsule 300 mg PO BEDTIME 11/24/22 11/24/22 Unknown History hydroxyzine HCl 25 mg tablet 25 mg PO TID PRN Anxiety 11/24/22 11/24/22 Unknown History melatonin 3 mg tablet 3 mg PO BEDTIME PRN Insomnia 11/24/22 11/24/22 Unknown History memantine 10 mg tablet 10 mg PO BID 11/24/22 11/24/22 Unknown History metoprolol succinate 25 mg 12.5 mg PO DAILY 11/24/22 11/24/22 Unknown History tablet,extended release 24 hr omeprazole 20 mg capsule,delayed 20 mg PO DAILY 11/24/22 11/24/22 Unknown History release polyethylene glycol 3350 17 gram 17 g PO DAILY 11/24/22 11/24/22 Unknown History oral powder packet (Miralax) risperidone 0.25 mg tablet 0.25 mg PO DAILY@1400 11/24/22 11/24/22 Unknown History risperidone 0.5 mg disintegrating 0.5 mg PO BEDTIME 11/24/22 11/24/22 Unknown History tablet Exam Exam Date and Time: November 25, 2022 1408 Height,Weight and Vital Signs: Height 5 ft 9 in Weight 83.7 kg Last Vital Signs Temp 98.0 F 11/25/22 13:35 Pulse 58 11/25/22 13:35 Resp 16 11/25/22 13:35 BP 125/83 11/25/22 13:35 Pulse Ox 98 11/25/22 13:35 O2 Del Method Room Air 11/25/22 13:35 Pertinent Lab Results Pertinent Lab Results: Laboratory Tests 11/24/22 11/24/22 11/24/22 10:01 10:01 10:01 WBC 16.1 H RBC 4.92 Hgb 14.4 Hct 44.1 MCV 89.6 MCH 29.3 MCHC 32.7 RDW 14.6 Plt Count 146 L D MPV 11.9 Immature Gran % (Auto) 0.5 H Neut % (Auto) 79.8 H Lymph % (Auto) 10.8 L [place] % (Auto) 8.6 Eos % (Auto) 0.1 Baso % (Auto) 0.2 Lymph # (Auto) 1.7 [place] # (Auto) 1.4 H Eos # (Auto) 0.0 Baso # (Auto) 0.0 Abs Immat Gran (auto) 0.08 H Absolute Neuts (auto) 12.8 H Absolute Nucleated RBC 0.000 Nucleated RBC % (auto) 0.0 Sodium Potassium Chloride Carbon Dioxide Anion Gap BUN Creatinine Estim Creat Clear Calc Estimated GFR Random Glucose Lactic Acid 3.2 H* Lactic Acid F/U @ 2Hr Calcium Total Bilirubin AST ALT Alkaline Phosphatase Troponin I High Sens Total Protein Albumin Lipase Urine Color Urine Appearance Urine pH Ur Specific [place] Urine Protein Urine Glucose (UA) Urine Ketones Urine Blood Urine Nitrite Ur Leukocyte Esterase Urine RBC Urine WBC Ur Squamous Epith Cells Urine Bacteria Hyaline Casts Stool Occult Blood COVID-19 ([place]) Negative COVID-19 Clin Com See Note 11/24/22 11/24/22 11/24/22 10:01 10:01 11:10 WBC RBC Hgb Hct MCV MCH MCHC RDW Plt Count MPV Immature Gran % (Auto) Neut % (Auto) Lymph % (Auto) [place] % (Auto) Eos % (Auto) Baso % (Auto) Lymph # (Auto) [place] # (Auto) Eos # (Auto) Baso # (Auto) Abs Immat Gran (auto) Absolute Neuts (auto) Absolute Nucleated RBC Nucleated RBC % (auto) Sodium 143 Potassium 4.2 D Chloride 113 H Carbon Dioxide 23 Anion Gap 11 L BUN 20 H Creatinine 0.93 Estim Creat Clear Calc 74.9 Estimated GFR > 60 Random Glucose 106 Lactic Acid Lactic Acid F/U @ 2Hr Calcium 7.7 L D Total Bilirubin 0.4 AST 22 ALT 26 Alkaline Phosphatase 84 Troponin I High Sens 4.0 Total Protein 5.8 L Albumin 3.5 Lipase 12 Urine Color Urine Appearance Urine pH Ur Specific [place] Urine Protein Urine Glucose (UA) Urine Ketones Urine Blood Urine Nitrite Ur Leukocyte Esterase Urine RBC Urine WBC Ur Squamous Epith Cells Urine Bacteria Hyaline Casts Stool Occult Blood NEGATIVE COVID-19 ([place]) COVID-19 Clin Com 11/24/22 11/24/22 11/24/22 11:25 12:35 17:33 WBC 13.3 H RBC 4.14 L Hgb 12.6 L Hct 38.0 L MCV 91.8 MCH 30.4 MCHC 33.2 RDW 14.9 Plt Count 147 L MPV 12.0 Immature Gran % (Auto) Neut % (Auto) Lymph % (Auto) [place] % (Auto) Eos % (Auto) Baso % (Auto) Lymph # (Auto) [place] # (Auto) Eos # (Auto) Baso # (Auto) Abs Immat Gran (auto) Absolute Neuts (auto) Absolute Nucleated RBC 0.000 Nucleated RBC % (auto) 0.0 Sodium Potassium Chloride Carbon Dioxide Anion Gap BUN Creatinine Estim Creat Clear Calc Estimated GFR Random Glucose Lactic Acid Lactic Acid F/U @ 2Hr 1.7 Calcium Total Bilirubin AST ALT Alkaline Phosphatase Troponin I High Sens Total Protein Albumin Lipase Urine Color Yellow Urine Appearance Clear Urine pH 8.0 Ur Specific [place] 1.025 Urine Protein Trace Urine Glucose (UA) Negative Urine Ketones Trace Urine Blood Small (1+) H Urine Nitrite Negative Ur Leukocyte Esterase Small (1+) H Urine RBC 11-20 H Urine WBC 11-20 H Ur Squamous Epith Cells 0-2 Urine Bacteria None Seen Hyaline Casts 0-2 Stool Occult Blood COVID-19 ([place]) COVID-19 [employer] Com 11/25/22 05:37 WBC RBC Hgb Hct MCV MCH MCHC RDW Plt Count MPV Immature Gran % (Auto) Neut % (Auto) Lymph % (Auto) [place] % (Auto) Eos % (Auto) Baso % (Auto) Lymph # (Auto) [place] # (Auto) Eos # (Auto) Baso # (Auto) Abs Immat Gran (auto) Absolute Neuts (auto) Absolute Nucleated RBC Nucleated RBC % (auto) Sodium 139 Potassium 3.7 Chloride 112 H Carbon Dioxide 20 L Anion Gap 11 L BUN 12 Creatinine 0.79 Estim Creat Clear Calc 88.2 Estimated GFR > 60 Random Glucose 82 Lactic Acid Lactic Acid F/U @ 2Hr Calcium 7.6 L Total Bilirubin AST ALT Alkaline Phosphatase Troponin I High Sens Total Protein Albumin Lipase Urine Color Urine Appearance Urine pH Ur Specific [place] Urine Protein Urine Glucose (UA) Urine Ketones Urine Blood Urine Nitrite Ur Leukocyte Esterase Urine RBC Urine WBC Ur Squamous Epith Cells Urine Bacteria Hyaline Casts Stool Occult Blood COVID-19 ([place]) COVID-19 Clin Com Airway Mallampati Class: II TM Dist: >3cm Neck ROM: Limited Heart: rrr Lungs: cta Assessment and Plan Final Anesthetic Review Family History of Problems with Anesthesia: No History of Problems with Anesthesia: Yes ASA Class: IV Final Preanesthetic Review: No Changes in Pt Med Stat, Meds/Allgs Chart Reviewed, Consent Obtained/Reviewed, Anes Risks/Benef Reviewed and DNR Form (If Appl.) Patient Risk: High Procedure Risk: Intermediate Anesthetic Plan Anesthetic Plan: MAC: and Agree w/ Assess. and Plan Disposition: Standard PACU
--- NOTE | 2022-11-25 14:09 | HO.PM.IMPN ---
Subjective Subjective Date of Service: 11/25/22 Interval History: Awake, Nonverbal at baseline, no acute events overnight, NPO is scheduled for upper endoscopy at 14:00 Review of Systems Review of Systems: Yes Unobtainable due to mental status Physical Exam Vital Signs: Vital Signs: Last Vital Signs Temp 98.0 F 11/25/22 13:35 Pulse 58 11/25/22 13:35 Resp 16 11/25/22 13:35 BP 125/83 11/25/22 13:35 Pulse Ox 98 11/25/22 13:35 O2 Del Method Room Air 11/25/22 13:35 BMI result Body Mass Index 27.2 Const: Other: General awake, resting comfortably ,in no acute distress. Neck no JVD. CVS regular rate rhythm, Respiratory lungs clear to auscultation, no respiratory distress Gastrointestinal abdomen soft, bowel sounds audible, no guarding. Extremities no edema. Neuro moving all 4 extremity Skin no rash Objective Data Active Medications Acetaminophen (Acetaminophen 325 Mg Tablet) 650 mg PO Q6H PRN PRN Reason: Pain, Mild (Pain Scale 1-3) Atorvastatin Calcium (Atorvastatin Calcium 80 Mg Tablet) 80 mg PO DAILY [facility] Last Admin: 11/25/22 09:29 Dose: 80 mg Documented By: MILLY Divalproex Sodium (Divalproex Sodium Sprinkles 125 Mg ) 125 mg PO BID [facility] Last Admin: 11/25/22 09:29 Dose: 125 mg Documented By: MILLY Docusate Sodium (Docusate Sodium 100 Mg Capsule) 200 mg PO BID [facility] Last Admin: 11/25/22 09:29 Dose: 200 mg Documented By: MILLY Donepezil HCl (Donepezil Hcl 10 Mg Tablet) 20 mg PO DAILY [facility] Last Admin: 11/25/22 09:28 Dose: 20 mg Documented By: MILLY Escitalopram Oxalate (Escitalopram Oxalate 5 Mg Tablet) 5 mg PO DAILY [facility] Last Admin: 11/25/22 09:29 Dose: 5 mg Documented By: MILLY Gabapentin (Gabapentin 100 Mg Capsule) 200 mg PO DAILY [facility] Last Admin: 11/25/22 09:28 Dose: 200 mg Documented By: MILLY Gabapentin (Gabapentin 300 Mg Capsule) 300 mg PO BEDTIME [facility] Last Admin: 11/24/22 19:45 Dose: 300 mg Documented By: ROBINSON Hydroxyzine HCl (Hydroxyzine Hcl 25 Mg Tablet) 25 mg PO TID PRN PRN Reason: Anxiety Lactated Ringer's (Lr) 1,000 mls @ 100 mls/hr IVCONT .Q10H [facility] Last Admin: 11/25/22 11:44 Dose: 100 mls/hr Documented By: MILLY Melatonin (Melatonin 3 Mg Tablet) 3 mg PO BEDTIME PRN PRN Reason: Insomnia Memantine (Memantine Hcl 10 Mg Tablet) 10 mg PO BID [facility] Last Admin: 11/25/22 09:29 Dose: 10 mg Documented By: MILLY Metoprolol Succinate (Metoprolol Succinate Er 12.5 Mg Halftab.Er.24h) 12.5 mg PO DAILY [facility]; Protocol Last Admin: 11/25/22 09:29 Dose: 12.5 mg Documented By: MILLY Omeprazole (Omeprazole 20 Mg Capsule.Dr) 20 mg PO DAILY [facility] Last Admin: 11/25/22 09:29 Dose: 20 mg Documented By: MILLY Ondansetron HCl (Ondansetron Hcl 4 Mg/2 Ml Vial) 4 mg IVPUSH Q8H PRN PRN Reason: Nausea and Vomiting Pantoprazole Sodium (Pantoprazole Sodium 40 Mg/10 Ml Vial) 40 mg IVPUSH BID@0630,1630 [facility] Last Admin: 11/25/22 05:38 Dose: 40 mg Documented By: ROSEANN Pharmacy Consult (Consult Rx Perform Med Rec) 1 each MISCELLANE ONCE PRN PRN Reason: Consult order Polyethylene Glycol (Polyethylene Glycol 3350 17 Gm Powd.Pack) 17 gm PO DAILY [facility] Last Admin: 11/25/22 11:31 Dose: Not Given Documented By: MILLY Non-Admin Reason: NPO Risperidone (Risperidone 0.25 Mg Tablet) 0.25 mg PO DAILY@1400 [facility] Last Admin: 11/24/22 15:16 Dose: Not Given Documented By: RAYMUNDO Non-Admin Reason: asleep, npo Risperidone (Risperidone 0.5 Mg Tablet) 0.5 mg PO BEDTIME [facility] Last Admin: 11/24/22 19:45 Dose: 0.5 mg Documented By: ROBINSON Sodium Chloride (0.9 % Sodium Chloride Flush 3 Ml Syringe) 3 ml IVFLUSH QSHIFT [facility] Last Admin: 11/25/22 11:32 Dose: Not Given Documented By: MILLY Non-Admin Reason: IV Running Labs 11/24/22 17:33 11/25/22 05:37 Labs: Laboratory Results - last 24 hr 11/24/22 11/25/22 17:33 05:37 MCV 91.8 MCH 30.4 MCHC 33.2 RDW 14.9 Plt Count 147 L MPV 12.0 Absolute Nucleated RBC 0.000 Nucleated RBC % (auto) 0.0 Anion Gap 11 L Estim Creat Clear Calc 88.2 Estimated GFR > 60 Random Glucose 82 Calcium 7.6 L Microbiology Microbiology Results: Microbiology 11/24/22 11:10 Blood Culture - Preliminary Blood - Venous No growth after 24 hours. 11/24/22 10:38 Blood Culture - Preliminary Blood - Venous No growth after 24 hours. 11/24/22 Unknown Urine Culture - Preliminary Urine Catheterized - Straight Catheter Gram negative aleah Assessment and Plan (1) Acute upper gastrointestinal bleeding: Status: Acute (2) Leukocytosis: Status: Acute (3) Acidosis, lactic: Status: Acute Plan 67-year-old male with a PMH significant for?Alzheimer's with behavioral disturbances, CAD, HTN, HLD, and Jackson's esophagus who presents to the ED with?an episode of coffee-ground emesis this morning after breakfast.? Patient is nonverbal at baseline. HPI provided by staff at [facility] where he is a resident. admitted to the hospital for treatment of further evaluation of possible upper GI bleed. Question of upper GI bleed Admitted with multiple episodes of vomiting the night prior to admission and 1 episode of coffee-ground emesis after breakfast on day of admission no recurrent episodes of vomiting since admission, repeat hematocrit stable Stool negative for occult blood Differential:? Eve-Enriquez tear vs peptic ulcer disease vs Barretts esophagus Continue Protonix IV b.i.d.,ivf, NPO scheduled for upper endoscopy this afternoon. Leukocytosis Patient presented with a leukocytosis of 16.1 repeat WBC 13.3 Most likely reactive, no clear sign or source of infection: afebrile, UA negative Patient given ceftriaxone at the ED Hold off on abx for now Patient does not meet sepsis criteria Follow CBC Elevated lactic acid, resolved Patient's initial lactic acid 3.2 with repeat 1.7 after IV fluids Likely secondary to dehydration, not sepsis Diet on ground mechanical / thin liquids at baseline Alzheimer's Continue memantine, donepezil HLD Continue statin Mood disorder Continue risperidone, and divalproex DNR/DNI DVT Prophylaxis: Pneumatic Boots Pt will require continued inpatient hospitalization for further evaluation and treatment for upper GI bleed. Time Spent With Patient Time: Total time managing care of this patient today ____ minutes. Quality Stroke Does the patient have a stroke diagnosis?: No VTE Prior VTE?: No VTE Risk Level:: Medical - moderate - high VTE Device Contraindication: N/A - Device Ordered VTE Drug Contraindication: Treatment Not Indicated
--- NOTE | 2022-11-25 14:18 | PC.NURSE ---
verbal report given to ne rn in pacu. moved patient with to bed 15
--- NOTE | 2022-11-25 14:57 | P.BOP_ITS ---
Brief Operative Note Date of Service: 11/25/22 Pre-op diagnosis: UPPER GI BLEEDING, HISTORY OF BARRETTS ESOPHAGUS Post-op diagnosis: other (Esophagitis, hiatal hernia, Blevins's esophagus, gastritis, duodenitis) Procedure: FLEXIBLE TRANSORAL UPPER GASTROINTESTINAL ENDOSCOPY WITH BIOPSIES Surgeon: Pro Saunders MD Anesthesia: MAC Was an Environmental Services Attendant used for this Procedure?: Yes Environmental Services Attendant: Gely Armas Estimated blood loss (mL): 2 Pathology: other (A: GASTRIC ANTRUM BXS R/O H. PYLORI B: DISTAL ESOPHAGUS BXS R/O BLEVINS'S) Condition: stable Disposition: PACU
--- NOTE | 2022-11-25 14:57 | W.PM.OPN ---
Operative Note Operative Note Date of Service: 11/25/22 Narrative: Pre-op diagnosis: UPPER GI BLEEDING,? HISTORY OF BARRETTS ESOPHAGUS Post-op diagnosis:?other (Esophagitis, hiatal hernia, Jackson's esophagus,? gastritis, duodenitis) Surgeon: Pro Saunders MD Anesthesia:?MAC FLEXIBLE TRANSORAL UPPER GASTROINTESTINAL ENDOSCOPY WITH BIOPSIES Consent: Indications for the procedure and potential complications of bleeding, perforation, reaction to medications and missed diagnosis were discussed with the patient and informed consent was obtained. Instrument: Olympus GIF H 190 mid size upper endoscope Monitoring: Vital signs and clinical assessment, continuous EKG monitoring, Pulse oximetry, Carbon Dioxide monitoring and blood pressure monitoring were done throughout the procedure. Procedure: The patient was placed in the left lateral decubitis position and pre-procedure medications were administered and a bite block was placed. The endoscope was inserted into the mouth and advanced under direct vision to the third part of duodenum. A careful inspection was made as the upper endoscope was withdrawn including a retroflexed examination of the proximal stomach; Findings and interventions are described below. Findings: Larynx: Normal Esophagus: GE junction at 34 cms with focal esophagitis at GE junction. A circumferential segment of Jackson's from 34 to 36 cms. Hiatal hernia 36 to 40 cms. Stomach: Mild gastric erythema. Biopsies were obtained. Grade 3 flap valve on retroflexed examination of the cardia. Duodenum: Duodenitis in the bulb and normal descending duodenum Intervention: Biopsies as noted above Impression and Post Procedure Diagnosis: Endoscopy Findings: ESOPHAGUS: GE junction at 34 cms with focal area of grade 4 erosive esophagitis at the GE junction. A circumferential segment of Jackson's from 34 to 36 cms - biopsied. Hiatal hernia 36 to 40 cms. STOMACH: Mild gastritis DUODENUM: Duodenitis in the bulb. No blood or active bleeding seen in UGI tract duirng EGD. Episode of coffee ground emesis likely from Plan: Increase Omeprazole to 20 mg twice daily. Pt can be transferred back to SNF in the am if H & H is stable I will contact pt's with pathology results Above findings were reviewed with the patient's . Pt can Fu in the GI clinic prn in case of any problems in the future. Given underlying dementia, pt is not a candidate for Jackson's surveillance.
--- NOTE | 2022-11-25 15:31 | MHC.CM.PN ---
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
[2022-11-25] MEDS: risperiDONE 0.25 MG TABLET PO (16:06)
[2022-11-25] MEDS: Gabapentin 300 MG CAPSULE PO (20:06)
[2022-11-25] MEDS: risperiDONE 0.5 MG TABLET PO (20:07)
[2022-11-25] MEDS: 0.9 % Sodium Chloride Flush 3 ML SYRINGE IVFLUSH (20:14)
[2022-11-26] VITALS: BP 110/62; PULSE 62; RESP 17; TEMP 36.6; O2SAT 96
[2022-11-26 03:09] VITALS: BP 116/67; PULSE 62; RESP 17; TEMP 36.5; O2SAT 98
[2022-11-26] MEDS: Pantoprazole Sodium 40 MG/10 ML VIAL IVPUSH (05:52)
[2022-11-26 05:57] LABS: Hematocrit 35.5 % (42.0-52.0); Hemoglobin 11.9 g/dl (14.0-18.0); Mean Corpuscular HGB Conc 33.5 g/dl (31.0-36.0); Mean Corpuscular Hemoglobin 29.9 pg (27.0-33.0); Mean Corpuscular Volume 89.2 fL (80.0-98.0); Platelet Count 140 X10*3/uL (160-400); Red Blood Count 3.98 X10*6/uL (4.60-5.80); Red Cell Distribution Width 14.4 % (11.0-16.0); White Blood Count 8.6 X10*3/uL (4.8-10.8)
[2022-11-26 06:09] LABS: Anion Gap 11 (12-20); Blood Urea Nitrogen 11 mg/dL (9-16); Carbon Dioxide 24 mmol/L (22-29); Chloride 109 mmol/L (96-108); Estimated Glomerular Filt Rate > 60; Glucose Random 90 mg/dL (60-115); Potassium 3.7 mmol/L (3.3-5.1); Sodium 140 mmol/L (135-145)
[2022-11-26 07:50] VITALS: BP 113/70; PULSE 57; RESP 18; TEMP 36.7; O2SAT 95
[2022-11-26 08:00] VITALS: BP 113/70; PULSE 58; RESP 18; TEMP 36.6; O2SAT 93
[2022-11-26] MEDS: Omeprazole 20 MG CAPSULE.DR PO (09:22)
[2022-11-26] MEDS: Atorvastatin Calcium 80 MG TABLET PO (09:22)
[2022-11-26] MEDS: Docusate Sodium 100 MG CAPSULE 200 MG PO (09:22)
[2022-11-26] MEDS: Memantine HCl 10 MG TABLET PO (09:23)
[2022-11-26] MEDS: Gabapentin 100 MG CAPSULE 200 MG PO (09:23)
[2022-11-26] MEDS: Donepezil HCl 10 MG TABLET 20 MG PO (09:23)
[2022-11-26] MEDS: Divalproex Sodium Sprinkles 125 MG CAP.DR.SPR PO (09:24)
[2022-11-26] MEDS: 0.9 % Sodium Chloride Flush 3 ML SYRINGE IVFLUSH (09:24)
[2022-11-26] MEDS: Escitalopram Oxalate 5 MG TABLET PO (09:24)
[2022-11-26 09:27] VITALS: PULSE 64
[2022-11-26] MEDS: Metoprolol Succinate ER 12.5 MG HALFTAB.ER.24H PO (09:28)
[2022-11-26] MEDS: polyethylene glycoL 3350 17 GM POWD.PACK PO (09:28)
[2022-11-26] MEDS: risperiDONE 0.25 MG TABLET PO (13:27)
--- NOTE | 2022-11-26 13:54 | MHC.CM.PN ---
CM SPOKE TO PTS , JAZMIN [phone] WHO CONFIRMS PT IS LTC AT [facility] SHE REPORTS PT IS DEPENDENT FOR ALL CARE SHE IS PTS HCP, ON FILE PCP: EZEQUIEL SCHILLING IMM DELIVERED, COPY TO BE MAILED TO HER PT WILL DC TODAY, BACK TO [facility] VIA [employer] AT 1500 HOURS
--- NOTE | 2022-11-26 14:12 | P.DS_ITS ---
DS: Providers Provider Date of Service: 11/26/22 Date of admission: 11/24/22 13:08 Date of discharge: 11/26/22 Primary care physician: YVES HONG Consults: 11/24/22 13:07 Consult to Gastroenterology Routine Consulting Provider: Pro Saunders Reason for consultation: ?UGIB DS: Diagnosis Discharge Diagnosis (1) Acute upper gastrointestinal bleeding: Status: Acute (2) Esophagitis: Status: Acute (3) Barretts esophagus: Status: Acute DS: Summary Hospital Course Hospital Course: from admission H+P by hospitalist CRISTI Rivas, 11/24/22: Pt is a 67-year-old male with a PMH significant for?Alzheimer's with behavioral disturbances, CAD, HTN, HLD, and Jackson's esophagus who presents to the ED with?an episode of coffee-ground emesis this morning after breakfast.? Patient is nonverbal at baseline. HPI provided by staff at [facility] where he is a resident.? Staff report that patient had 2-3 episodes of vomiting last night; there is no description of the vomitus some unclear any bright red blood or coffee ground emesis was present.? This a.m. patient had an episode of vomiting after breakfast with coffee-ground emesis. Was shown to the nurse practitioner the suggestive patient come to the ED for further evaluation for possible GI bleed.? Staff at nursing homes report patient was afebrile with no signs of infection, behavioral changes from baseline, or signs of discomfort/pain. In the ED patient was afebrile but slightly hypertensive at 154/73. Labs were significant for leukocytosis of 16.1, H&H WNL at 14.4/44.1, and lactic acid 3.2. UA negative for UTI. Stool negative for occult blood. CXR showed no acute cardiopulmonary process. EKG demonstrated likely normal sinus rhythm with artifact tracings, but no evidence of ST elevations or depressions. Pt was treated with ceftriaxone, IVF, ondansetron, and pantoprazole. Pt will be admitted to the hospital for treatment of further evaluation of possible upper GI bleed. He was admitted to the [id number] floor. Hemoglobin remained stable and there were no further episodes of coffee-ground emesis. No signs of infection; leukocytosis was likely reactive. Lactate normalized. Stool FOBT was negative. GI was consulted. Dr Pro Saunders performed EGD on 11/25/22, which showed: ESOPHAGUS: GE junction at 34 cms with focal area of grade 4 erosive esophagitis at the GE junction. A? circumferential segment of Jackson's from 34 to 36 cms - biopsied.? Hiatal hernia 36 to 40 cms. STOMACH: Mild gastritis DUODENUM: Duodenitis in the bulb. No blood or active bleeding seen in UGI tract duirng EGD... Plan per GI: Increase Omeprazole to 20 mg twice daily. Pt can be transferred back to SNF in the am if H & H is stable. I will contact pt's with pathology results. Above findings were reviewed with the patient's . Pt can Fu in the GI clinic prn in case of any problems in the future. Given underlying dementia, pt is not a candidate for Jackson's surveillance. He was discharged back to [facility] with bid PPI. Time Spent with Patient Time attestation: Total time managing care of this patient today __35__ minutes. Discharge coordination time: Greater than 30 minutes Quality: Safe Use of Opioids Does Pt have an Active Cancer Diagnosis on the Problem List?: No Quality: Stroke Does the patient have a stroke diagnosis?: No Physical Exam Vital Signs: Vital Signs: Last Vital Signs Temp 98 F 11/26/22 08:00 Pulse 64 11/26/22 09:27 Resp 18 11/26/22 08:00 BP 113/70 11/26/22 08:00 Pulse Ox 93 11/26/22 08:00 O2 Del Method Room Air 11/26/22 08:00 BMI result Body Mass Index 27.2 Gen: in no acute distress HEENT: sclera anicteric, moist mucus membranes Neck: supple Lungs: clear to auscultation bilaterally Heart: regular rate and rhythm, no murmurs Abd: soft, non-tender, non-distended Ext: no edema Skin: warm/well-perfused Neuro: alert, nonverbal DS: Data Data Completed and Pending Completed studies during hospitalization [Text1]: Laboratory Results WBC 8.6 X10*3/uL (4.8-10.8) 11/26/22 05:15 RBC 3.98 X10*6/uL (4.60-5.80) L 11/26/22 05:15 Hgb 11.9 g/dl (14.0-18.0) L 11/26/22 05:15 Hct 35.5 % (42.0-52.0) L 11/26/22 05:15 MCV 89.2 fL (80.0-98.0) 11/26/22 05:15 MCH 29.9 pg (27.0-33.0) 11/26/22 05:15 MCHC 33.5 g/dl (31.0-36.0) 11/26/22 05:15 RDW 14.4 % (11.0-16.0) 11/26/22 05:15 Plt Count 140 X10*3/uL (160-400) L 11/26/22 05:15 MPV 12.0 fL (9.4-12.4) 11/26/22 05:15 Immature Gran % (Auto) 0.5 % (0.0-0.4) H 11/24/22 10:01 Neut % (Auto) 79.8 % (45-73) H 11/24/22 10:01 Lymph % (Auto) 10.8 % (20-40) L 11/24/22 10:01 [place] % (Auto) 8.6 % (2-11) 11/24/22 10:01 Eos % (Auto) 0.1 % (0-4) 11/24/22 10:01 Baso % (Auto) 0.2 % (0-2) 11/24/22 10:01 Lymph # (Auto) 1.7 X10*3/uL (1.2-4.9) 11/24/22 10:01 [place] # (Auto) 1.4 X10*3/uL (0.1-1.2) H 11/24/22 10:01 Eos # (Auto) 0.0 X10*3/uL (0.0-0.4) 11/24/22 10:01 Baso # (Auto) 0.0 X10*3/uL (0.0-0.2) 11/24/22 10:01 Abs Immat Gran (auto) 0.08 X10*3/uL (0.00-0.03) H 11/24/22 10:01 Absolute Neuts (auto) 12.8 x10*3/uL (2.0-8.3) H 11/24/22 10:01 Absolute Nucleated RBC 0.000 X10*3/uL (0.0-0.012) 11/26/22 05:15 Nucleated RBC % (auto) 0.0 /100WBC (0.0-0.2) 11/26/22 05:15 Sodium 140 mmol/L (135-145) 11/26/22 05:15 Potassium 3.7 mmol/L (3.3-5.1) 11/26/22 05:15 Chloride 109 mmol/L (96-108) H 11/26/22 05:15 Carbon Dioxide 24 mmol/L (22-29) 11/26/22 05:15 Anion Gap 11 (12-20) L 11/26/22 05:15 BUN 11 mg/dL (9-16) 11/26/22 05:15 Creatinine 0.85 mg/dL (0.5-1.4) 11/26/22 05:15 Estim Creat Clear Calc 82.0 11/26/22 05:15 Estimated GFR > 60 11/26/22 05:15 Random Glucose 90 mg/dL (60-115) 11/26/22 05:15 Lactic Acid 3.2 mmol/L (0.5-2.0) H* 11/24/22 10:01 Lactic Acid F/U @ 2Hr 1.7 mmol/L (0.5-2.0) 11/24/22 12:35 Calcium 8.0 mg/dL (8.4-10.2) L 11/26/22 05:15 Total Bilirubin 0.4 mg/dL (0.0-1.0) 11/24/22 11:10 AST 22 U/L (5-37) 11/24/22 11:10 ALT 26 U/L (0-40) 11/24/22 11:10 Alkaline Phosphatase 84 U/L (39-117) 11/24/22 11:10 Troponin I High Sens 4.0 ng/L (<3.5-35.0) 11/24/22 10:01 Total Protein 5.8 g/dL (6.5-8.0) L 11/24/22 11:10 Albumin 3.5 g/dL (3.5-5.0) 11/24/22 11:10 Lipase 12 U/L (8-78) 11/24/22 11:10 Urine Color Yellow 11/24/22 11:25 Urine Appearance Clear 11/24/22 11:25 Urine pH 8.0 (5.0-9.0) 11/24/22 11:25 Ur Specific [place] 1.025 (1.005-1.025) 11/24/22 11:25 Urine Protein Trace mg/dL (Neg-Trace) 11/24/22 11:25 Urine Glucose (UA) Negative mg/dL (Negative) 11/24/22 11:25 Urine Ketones Trace mg/dL (Negative) 11/24/22 11:25 Urine Blood Small (1+) (Negative) H 11/24/22 11:25 Urine Nitrite Negative (Negative) 11/24/22 11:25 Ur Leukocyte Esterase Small (1+) (Negative) H 11/24/22 11:25 Urine RBC 11-20 /HPF (0-2) H 11/24/22 11:25 Urine WBC 11-20 /HPF (0-5) H 11/24/22 11:25 Ur Squamous Epith Cells 0-2 /HPF (0-2) 11/24/22 11:25 Urine Bacteria None Seen (None Seen) 11/24/22 11:25 Hyaline Casts 0-2 /LPF (0-2) 11/24/22 11:25 Stool Occult Blood NEGATIVE (NEGATIVE) 11/24/22 10:01 COVID-19 ([place]) Negative (Negative) 11/24/22 10:01 COVID-19 Clin Com See Note 11/24/22 10:01 Impressions Chest X-Ray 11/24/22 11:12 IMPRESSION: No acute cardiopulmonary process. Pending studies at discharge: Pending at discharge 11/25/22 15:14 Surgical [PTH] Routine Discharge Plan Discharge Anticipated Discharge Date/Time: 11/26/22 14:06 Patient Disposition: Xfer SNF Discharge Diagnosis: Esophagitis Referrals: [facility]ford [Outside] - 1 Week YVES HONG [Primary Care Provider] - 1 Week Discharge Medications: New omeprazole 20 mg Capsule,Delayed Release(Dr/Ec) 20 mg PO BID@0630,1630 Qty: 60 0RF Continued atorvastatin 80 mg tablet 80 mg PO DAILY risperidone 0.25 mg tablet 0.25 mg PO DAILY@1400 hydroxyzine HCl 25 mg tablet 25 mg PO TID PRN (Reason: Anxiety) metoprolol succinate 25 mg tablet extended release 24 hr 12.5 mg PO DAILY divalproex 125 mg capsule, delayed rel sprinkle 125 mg PO BID risperidone 0.5 mg tablet,disintegrating 0.5 mg PO BEDTIME memantine 10 mg tablet 10 mg PO BID donepezil 23 mg tablet 23 mg PO DAILY polyethylene glycol 3350 [Miralax] 17 gram Powder In Packet 17 g PO DAILY citalopram 10 mg Tablet 15 mg PO DAILY melatonin 3 mg Tablet 3 mg PO BEDTIME PRN (Reason: Insomnia) docusate sodium [Colace] 100 mg Capsule 200 mg PO BID gabapentin 300 mg Capsule 300 mg PO BEDTIME gabapentin 100 mg Capsule 200 mg PO DAILY Discontinued omeprazole 20 mg capsule,delayed release(DR/EC) 20 mg PO DAILY Discharge Orders: Discharge Order (Routine); Ordered 11/26/22 Ordered By: Anmol Bhagat Diet: Advance to usual diet Activity on Discharge: As tolerated Stand Alone Forms: Patient Portal Discharge page Care Plan Goals: resolution of GI Bleeding Health Concerns: esophagitis Plan of Treatment: increase omeprazole to [address] Saunders will call with results of biopsies Please follow up with your primary care doctor within 1 week. Return to the hospital if you experience recurrent or worsening symptoms. Assessment: See Discharge Summary.
--- NOTE | 2022-11-26 20:38 | HO.POSTANES ---
Post Anesthesia Evaluation Post Anesthesia Evaluation Vital Signs: Vital Signs Pulse 11/26/22 09:27 64 Anesthesia: Monitored Mental Status: Awake Pain Control: Satisfactory Nausea/Vomiting: None Hydration: Adequate Anesthesia-Related Issues: No Anes. Related Issues
== END 2022-11-26 15:09 | disposition skilled nursing facility (03) | DRG 368 ==
LOC: HO.ED 10:06 → HO.EDOVER 13:18 → HO.S3 15:15
PROVIDERS: Hospitalist; Internal Medicine Gastroenterology; Admitting Provider Student in an Organized Health Care Education/Training Program; Emergency Provider Emergency Medicine; PCP Emergency Medicine; Visit Provider Family Medicine
PROC: 0DJ08ZZ Inspection of Upper Intestinal Tract, Via Natural or Artificial Opening Endoscopic (ICD-10-PCS; CPT 43235; principal; 2022-11-25 14:30)
DX: K21.01 Gastro-esophageal reflux disease with esophagitis, with bleeding (principal); K29.71 Gastritis, unspecified, with bleeding; K29.81 Duodenitis with bleeding; F02.818 Dementia in other diseases classified elsewhere, unspecified severity, with other behavioral disturbance; G30.9 Alzheimer's disease, unspecified; Z66 Do not resuscitate; I25.10 Atherosclerotic heart disease of native coronary artery without angina pectoris; I10 Essential (primary) hypertension; K22.70 Barrett's esophagus without dysplasia; K44.9 Diaphragmatic hernia without obstruction or gangrene; Z80.0 Family history of malignant neoplasm of digestive organs; Z20.822 Contact with and (suspected) exposure to COVID-19; Z88.0 Allergy status to penicillin; Z79.899 Other long term (current) drug therapy
CPT/HCPCS: 36415; 71045; 80048; 80053; 81001; 82272; 83605; 83690; 84484; 85025; 85027; 87040; 87086; 87088; 87186; 87635; 88305; 88342; 93005; 99285; J0696; J2405

== ENCOUNTER 2023-04-01 22:55 | Emergency (ER) | payer MEDICARE, OTHER, SELFPAY ==
--- NOTE | ~2023-04-01 | XR_ITS ---
EXAMINATION: XR CHEST CLINICAL INFORMATION: Cough. Choking. COMPARISON: 11/24/2022 TECHNIQUE: Frontal view of the chest was obtained. FINDINGS: Normal symmetric lung volumes. No parenchymal consolidation. No pleural effusion. No pneumothorax. Cardiomediastinal silhouette and pulmonary vascularity are within normal limits. No acute osseous abnormalities. XR/XR chest 1V IMPRESSION: No acute pulmonary disease.
--- NOTE | 2023-04-01 23:25 | ED_ITS ---
HPI - Nausea/Vomiting/Diarrhea General Chief complaint: Nausea/Vomiting/Diarrhea Stated complaint: vomiting Time Seen by Provider: 04/01/23 23:21 Source: family and old records reviewed Mode of arrival: EMS Limitations: other (dementia) History of Present Illness HPI Narrative: 68 yo male with dementia, CAD, HLD, HTN, linda's esophagus on omeprazole - admitted in november for UGIB and increased his PPI no need for transfusion EGD showed duodenitis in the bulb, mild gastritis, no active bleeding and battett's esophagus - he comes in for report of difficulty swallowing which noted yesterday and wet cough along with coffee ground emesis tonight. He seems to have a hard time clearing his throat and congestion. noted she went to see him for their 39th anniversary yesterday and gave him a peanut butter cup and he had a hard time with it and seemed to choke on it she does not think he has known hx of aspiration risks or aspiration pneumonia MD elicited complaint: nausea, vomiting and other (seems to have issues swallowing wet cough) Pertinent past history: other (UGIB in november 2022) Onset (ago): day(s) (unclear seems to have been having issues for a month or so but worse over past couple of days coffee ground emesis x 1 toinght) Description of vomiting: coffee grounds Associated nausea: Yes Associated abdominal pain: No Location of pain: none Severity: mild Exacerbating factors: eating Relieving factors: none Associated symptoms: cough Related Data Home Medications Medication Instructions Recorded Confirmed atorvastatin 80 mg tablet 80 mg PO DAILY 11/24/22 11/24/22 citalopram 10 mg tablet 15 mg PO DAILY 11/24/22 11/24/22 divalproex 125 mg capsule,delayed 125 mg PO BID 11/24/22 11/24/22 release sprinkle docusate sodium 100 mg capsule 200 mg PO BID 11/24/22 11/24/22 (Colace) donepezil 23 mg tablet 23 mg PO DAILY 11/24/22 11/24/22 gabapentin 100 mg capsule 200 mg PO DAILY 11/24/22 11/24/22 gabapentin 300 mg capsule 300 mg PO BEDTIME 11/24/22 11/24/22 hydroxyzine HCl 25 mg tablet 25 mg PO TID PRN Anxiety 11/24/22 11/24/22 melatonin 3 mg tablet 3 mg PO BEDTIME PRN Insomnia 11/24/22 11/24/22 memantine 10 mg tablet 10 mg PO BID 11/24/22 11/24/22 metoprolol succinate 25 mg 12.5 mg PO DAILY 11/24/22 11/24/22 tablet,extended release 24 hr polyethylene glycol 3350 17 gram 17 g PO DAILY 11/24/22 11/24/22 oral powder packet (Miralax) risperidone 0.25 mg tablet 0.25 mg PO DAILY@1400 11/24/22 11/24/22 risperidone 0.5 mg disintegrating 0.5 mg PO BEDTIME 11/24/22 11/24/22 tablet Previous Rx's Medication Instructions Recorded omeprazole 20 mg capsule,delayed 20 mg PO BID@0630,1630 #60 caps 11/26/22 release Allergies Allergy/AdvReac Type Severity Reaction Status Date / Time Penicillins Allergy Unknown rash Verified 01/09/21 01:36 Review of Systems Review of Systems: ROS unable to be obtained due to dementia Gastrointestinal: Gastrointestinal: Reports nausea PMFSH Past Medical History Attestation statement: The following information was validated with the patient. Medical History Alzheimers disease Atherosclerotic heart disease of [place] coronary artery without angina pectoris Barretts esophagus Dementia with behavioral disturbance Do not resuscitate status [id number] resuscitation status Essential hypertension Hyperlipidemia Sleep apnea Social History Social History Household Members: Other Housing: [facility]way Do you presently have visiting nurse or other home services: No Alcohol intake: unknown Patient Tobacco Use Status: Never used Tobacco Advance Directives: Yes Advance Directives on File: Yes Advance Directives Date on File: 12/20/21 service: No Current occupational status: disabled Physical Exam Vital Signs: Vital Signs: Last Vital Signs Temp 98.9 F 04/01/23 23:51 Pulse 79 04/01/23 23:51 Resp 12 04/01/23 23:51 BP 135/86 04/01/23 23:51 Pulse Ox 100 04/01/23 23:51 O2 Del Method Room Air 04/01/23 23:51 BMI result Body Mass Index 28.4 Appearance: Somnolent opens eyes but otherwise not interactive and not verbal. No acute distress. Eyes: Pupils equal, round and reactive to light. ENT: Pharynx dry MM has clear dried emesis on his shirt no dried blood on shirt or mouth Neck: Normal inspection. Neck supple. CVS: Normal heart rate and rhythm. Pulses normal. Respiratory: No respiratory distress. Breath sounds coarse with wet cough not able to fully clear congestion Abdomen: Soft and non-tender. no grimace and no distention on exam noted Skin: Skin warm and dry. pale skin color. Extremities: No lower extremity edema. Neuro: Does not participate in neuro exam given underlying dementia Medications Administered Discontinued Medications Generic Name Dose Route Start Last Admin Trade Name Freq PRN Reason Stop Dose Admin Ondansetron HCl 4 mg 04/01/23 23:46 04/02/23 01:31 Ondansetron Hcl 4 Mg/2 Ml Vial IVPUSH 04/01/23 23:47 4 mg ONCE ONE Administration Pantoprazole Sodium 40 mg 04/01/23 23:46 04/02/23 01:31 Pantoprazole Sodium 40 Mg/10 Ml Vial IVPUSH 04/01/23 23:47 40 mg ONCE ONE Administration Medical Decision Making Medical Decision Making [facility] Narrative: 68 yo male with dementia, CAD, HLD, HTN, linda's esophagus on omeprazole - admitted in november for UGIB and increased his PPI no need for transfusion EGD showed duodenitis in the bulb, mild gastritis, no active bleeding and battett's esophagus here with what appears to be worsening swallowing mechanics possibly related to his barretts vs his parkinsons / dementia. Currently VS and no signs of coffee grounds on shirt or mouth at this time will obtain basic labs, start on zofran and protonix as well as CXR for aspiration. no prior surgery on abdomen in the past to suggest SBO as cause. Differential Diagnosis Differential Diagnoses: The differential diagnosis associated with the presentation includes gastritis, esophagitis, aspiration pneumonia, dysphagia, UGIB Admission/Observation Consideration of admission/observation: Escalation of care including admission/observation considered Lab Data [facility] Lab Attestation statement: I reviewed the patient's lab results. H/H and BUN stable 04/02/23 01:08 04/02/23 01:08 Labs: Lab Results 04/02/23 04/02/23 Range/Units 01:08 01:08 WBC 9.1 (4.8-10.8) X10*3/uL RBC 4.78 D (4.60-5.80) X10*6/uL Hgb 13.4 L (14.0-18.0) g/dl Hct 42.0 (42.0-52.0) % MCV 87.9 (80.0-98.0) fL MCH 28.0 (27.0-33.0) pg MCHC 31.9 (31.0-36.0) g/dl RDW 15.7 (11.0-16.0) % Plt Count TNP MPV TNP Immature Gran % (Auto) 0.3 (0.0-0.4) % Neut % (Auto) 54.0 (45-73) % Lymph % (Auto) 29.6 (20-40) % [place] % (Auto) 13.0 H (2-11) % Eos % (Auto) 2.3 (0-4) % Baso % (Auto) 0.8 (0-2) % Lymph # (Auto) 2.7 (1.2-4.9) X10*3/uL [place] # (Auto) 1.2 (0.1-1.2) X10*3/uL Eos # (Auto) 0.2 (0.0-0.4) X10*3/uL Baso # (Auto) 0.1 (0.0-0.2) X10*3/uL Abs Immat Gran (auto) 0.03 (0.00-0.03) X10*3/uL Absolute Neuts (auto) 4.9 (2.0-8.3) x10*3/uL Absolute Nucleated RBC 0.000 (0.0-0.012) X10*3/uL Nucleated RBC % (auto) 0.0 (0.0-0.2) /100WBC Smear Tech's Comments VERIFIED Sodium 137 (135-145) mmol/L Potassium 4.0 (3.3-5.1) mmol/L Chloride 109 H (96-108) mmol/L Carbon Dioxide 17 L (22-29) mmol/L Anion Gap 15 (12-20) BUN 15 (9-16) mg/dL Creatinine 0.86 (0.5-1.4) mg/dL Estim Creat Clear Calc 79.4 Estimated GFR > 60 Random Glucose 102 (60-115) mg/dL Calcium 8.5 D (8.4-10.2) mg/dL Magnesium 2.4 (1.6-2.6) mg/dL Total Bilirubin 0.4 (0.0-1.0) mg/dL Direct Bilirubin 0.2 (0.0-0.5) mg/dL AST 22 (5-37) U/L ALT 20 (0-40) U/L Alkaline Phosphatase 92 (39-117) U/L Total Protein 6.5 (6.5-8.0) g/dL Albumin 3.5 (3.5-5.0) g/dL Lipase 20 (8-78) U/L Independent Interpretation I performed an independent interpretation of an: EKG Interpretation: Rate: 76 Rhythm: NSR [place]: left Normal P waves. Normal MANJU. Normal QRS complex. ST T wave : normal no CORINNE qTC: normal prior studies: no acute ischemia The study has been interpreted contemporaneously by me. . Independent Historian Clinical information obtained from an independent historian. History obtained from or confirmed by: Spouse External Record Review External record reviewed: Inpatient record Discharge Plan Discharge Clinical Impression: Vomiting Qualifiers: Vomiting type: unspecified Nausea presence: with nausea Qualified Code(s): R11.2 - Nausea with vomiting, unspecified Patient Disposition: Still a Patient Prescriptions: No Action atorvastatin 80 mg tablet 80 mg PO DAILY risperidone 0.25 mg tablet 0.25 mg PO DAILY@1400 hydroxyzine HCl 25 mg tablet 25 mg PO TID PRN (Reason: Anxiety) metoprolol succinate 25 mg tablet extended release 24 hr 12.5 mg PO DAILY divalproex 125 mg capsule, delayed rel sprinkle 125 mg PO BID risperidone 0.5 mg tablet,disintegrating 0.5 mg PO BEDTIME memantine 10 mg tablet 10 mg PO BID donepezil 23 mg tablet 23 mg PO DAILY polyethylene glycol 3350 [Miralax] 17 gram Powder In Packet 17 g PO DAILY citalopram 10 mg Tablet 15 mg PO DAILY melatonin 3 mg Tablet 3 mg PO BEDTIME PRN (Reason: Insomnia) docusate sodium [Colace] 100 mg Capsule 200 mg PO BID gabapentin 300 mg Capsule 300 mg PO BEDTIME gabapentin 100 mg Capsule 200 mg PO DAILY omeprazole 20 mg Capsule,Delayed Release(Dr/Ec) 20 mg PO BID@0630,1630 Qty: 60 0RF
--- NOTE | 2023-04-01 23:47 | ECG_ITS ---
Test Reason : ABD PAIN Blood Pressure : / mmHG Vent. Rate : 076 BPM Atrial Rate : 076 BPM P-R Int : 164 ms QRS Dur : 076 ms QT Int : 418 ms P-R-T Axes : 041 -15 029 degrees QTc Int : 470 ms Normal sinus rhythm Normal ECG When compared with ECG of 24-NOV-2022 10:04, Nonspecific T wave abnormality, improved in Inferior leads Referred By: Laurence Rodas Electronically Signed By:IZZY FRENCH
[2023-04-01 23:51] VITALS: BP 116/86; BP 135/86; PULSE 76; PULSE 79; RESP 12; TEMP 37.2; O2SAT 100; O2SAT 98; BMI 28.4
[2023-04-02 01:19] LABS: Basophils Absolute Auto 0.1 X10*3/uL (0.0-0.2); Basophils Percent Auto 0.8 % (0-2); Eosinophils Absolute Auto 0.2 X10*3/uL (0.0-0.4); Eosinophils Percent Auto 2.3 % (0-4); Hemoglobin 13.4 g/dl (14.0-18.0); Imm Gran Abs Auto 0.03 X10*3/uL (0.00-0.03); Imm Gran Pct Auto 0.3 % (0.0-0.4); Lymphocytes Absolute Auto 2.7 X10*3/uL (1.2-4.9); Lymphocytes Percent Auto 29.6 % (20-40); MANUAL DIFF FLAG SCAN; Mean Corpuscular HGB Conc 31.9 g/dl (31.0-36.0); Mean Corpuscular Volume 87.9 fL (80.0-98.0); Monocytes Absolute Auto 1.2 X10*3/uL (0.1-1.2); Neutrophils Absolute Auto 4.9 x10*3/uL (2.0-8.3); PLT CLUMP 1; Red Blood Count 4.78 X10*6/uL (4.60-5.80); Red Cell Distribution Width 15.7 % (11.0-16.0); SCAN SMEAR FLAG 1
[2023-04-02 01:21] LABS: White Blood Count 9.1 X10*3/uL (4.8-10.8)
[2023-04-02] MEDS: ondansetron HCL 4 MG/2 ML VIAL IVPUSH (01:31)
[2023-04-02] MEDS: Pantoprazole Sodium 40 MG/10 ML VIAL IVPUSH (01:31)
[2023-04-02 01:35] LABS: SLIDE REVIEW VERIFIED
[2023-04-02 01:38] LABS: Alanine Aminotransferase 20 U/L (0-40); Albumin Level 3.5 g/dL (3.5-5.0); Alkaline Phosphatase 92 U/L (39-117); Anion Gap 15 (12-20); Aspartate Amino Transferase 22 U/L (5-37); Bilirubin Direct 0.2 mg/dL (0.0-0.5); Bilirubin Total 0.4 mg/dL (0.0-1.0); Blood Urea Nitrogen 15 mg/dL (9-16); Calcium 8.5 mg/dL (8.4-10.2); Carbon Dioxide 17 mmol/L (22-29); Chloride 109 mmol/L (96-108); Creatinine Clr Calc Pharmacy 79.4; Estimated Glomerular Filt Rate > 60; Glucose Random 102 mg/dL (60-115); Lipase 20 U/L (8-78); Magnesium 2.4 mg/dL (1.6-2.6); Sodium 137 mmol/L (135-145); Total Protein 6.5 g/dL (6.5-8.0)
[2023-04-02 01:53] LABS: Lactic Acid 1.9 mmol/L (0.5-2.0)
[2023-04-02 01:54] LABS: Troponin-I High Sensitivity < 2.7 ng/L (<3.5-35.0)
--- NOTE | 2023-04-02 04:56 | PC.NURSE ---
Pt nonverbal at baseline from [facility], no vomitting episodes simone, contraction noted in right arm, lung sounds clear, skin intact, warm and dry, at bedside, pt changed over, labs drawn, IV placed in right hand, Pt repositioned, and meds given as documented. [place] cath applied. Pt smiles on occasion, davis.
[2023-04-02 05:27] VITALS: BP 142/80; PULSE 68; RESP 14; TEMP 36.5; O2SAT 97
--- NOTE | 2023-04-02 05:34 | PC.NURSE ---
PO trial tolerated well will monitor for N/V.
--- NOTE | 2023-04-02 05:46 | MHC.EDTECH ---
[place] [phone] [place] book transport for pt back to SNF, estimated ETA given was 0700
--- NOTE | 2023-04-02 07:17 | PC.NURSE ---
Nurse to nurse given to Moraima at [facility], Pt will be transported via EMS. aware of plan.
== END 2023-04-02 07:27 | disposition skilled nursing facility (03) ==
PROVIDERS: Emergency Medicine; Emergency Provider Internal Medicine; PCP Emergency Medicine
DX: K29.70 Gastritis, unspecified, without bleeding (principal); R11.2 Nausea with vomiting, unspecified; R19.7 Diarrhea, unspecified; I25.10 Atherosclerotic heart disease of native coronary artery without angina pectoris; I10 Essential (primary) hypertension; R13.10 Dysphagia, unspecified; R05.9 Cough, unspecified; Z79.899 Other long term (current) drug therapy
CPT/HCPCS: 36415; 71045; 80048; 80076; 83605; 83690; 83735; 84484; 85025; 87040; 93005; 96374; 96375; 99285; J2405

== ENCOUNTER → 2023-04-01 23:47 | Outpatient (BNV) | payer MEDICARE, OTHER, SELFPAY | PROVIDERS: Emergency Provider Internal Medicine; PCP Emergency Medicine; Visit Provider Internal Medicine | DX: R10.9 Unspecified abdominal pain (principal) | CPT/HCPCS: 93010 ==